=== PATIENT | female | born 1990 | race Hispanic/Latino ===

== ENCOUNTER → 2017-06-04 | Outpatient (CLI) | payer OTHER ==
[2017-06-04 19:34] LABS: ALT/SGPT 15 U/L (12-78); AST/SGOT 9 U/L (15-37); BILIRUBIN,TOTAL 0.3 MG/DL (0.2-1.0); CREATININE FOR GFR 0.55 MG/DL (0.55-1.02); GLOMERULAR FILTRATION RATE > 60.0 (>60); URIC ACID 3.6 MG/DL (2.6-6.0)
[2017-06-04 19:52] LABS: BASO % 0.1 % (0.0-1.0); EOS # 0.1 10^3/uL (0.0-0.50); EOS % 0.6 % (0.0-3.0); IMMATURE GRANULOCYTE % 0.4 % (0-0); LYMPH # 1.9 10^3/uL (1.5-6.5); MEAN CORPUSCULAR VOLUME 80.6 fl (80.0-96.0); MONO # 0.5 10^3/uL (0.0-0.8); NEUTROPHILS # 5.5 10^3/uL (1.8-7.7); NEUTROPHILS % 68.9 % (36.0-66.0); PLATELET COUNT, AUTOMATED 274 10^3/uL (150-450)
[2017-06-04 20:22] LABS: ADD MORPHOLOGY? NO
[2017-06-05 10:37] LABS: HBsAg Prenatal NEGATIVE (NEGATIVE)
== END ==
LOC: M SMT 15:10
PROVIDERS: ATTEND Advanced Practice Midwife
DX: Z34.81 Encounter for supervision of other normal pregnancy, first trimester (principal); Z86.32 Personal history of gestational diabetes; O13.5 Gestational [pregnancy-induced] hypertension without significant proteinuria, complicating the puerperium

== ENCOUNTER 2017-09-08 14:07 | Emergency (ER) | payer OTHER | END 2017-09-08 15:37 | disposition left against medical advice (07) | LOC: M ED 14:07 | DX: R51 Headache (principal); Z53.21 Procedure and treatment not carried out due to patient leaving prior to being seen by health care provider ==

== ENCOUNTER → 2017-09-19 | Outpatient (CLI) | payer OTHER | LOC: M SMT 13:47 | DX: Z34.82 Encounter for supervision of other normal pregnancy, second trimester (principal); Z36.89 Encounter for other specified antenatal screening; Z3A.20 20 weeks gestation of pregnancy | CPT/HCPCS: 76811 ==

== ENCOUNTER → 2017-10-03 | Outpatient (CLI) | payer OTHER | LOC: M RAD 18:20 | DX: G43.019 Migraine without aura, intractable, without status migrainosus (principal) | CPT/HCPCS: 70450 ==

== ENCOUNTER 2017-10-11 18:38 | Inpatient (IN) | payer OTHER ==
[~2017-10-11 18:38] MED LIST: METOCLOPRAMIDE INJ 10MG/2ML VIAL (J2765) IV; PERCOCET 5MG/325MG TAB PO
[2017-10-11 20:46] LABS: BASO % 0.1 % (0.0-1.0); EOS % 0.4 % (0.0-3.0); HEMATOCRIT 34.1 % (36.0-47.0); IMMATURE GRANULOCYTE % 0.3 % (0-0); LYMPH # 1.8 10^3/uL (1.5-6.5); LYMPH % 22.6 % (24.0-44.0); MEAN CORPUSCULAR HGB CONC 32.3 g/dl (32.0-36.5); MEAN CORPUSCULAR VOLUME 83.6 fl (80.0-96.0); MONO # 0.4 10^3/uL (0.0-0.8); NEUTROPHILS # 5.6 10^3/uL (1.8-7.7); NEUTROPHILS % 71.6 % (36.0-66.0); PLATELET COUNT, AUTOMATED 202 10^3/uL (150-450); RED BLOOD COUNT 4.08 10^6/uL (4.00-5.40); RED CELL DISTRIBUTION WIDTH 15.6 % (11.5-14.5); WHITE BLOOD COUNT 7.8 10^3/uL (4.0-10.0)
[2017-10-11] MEDS: diphenhydrAMINE INJ 50MG/ML VIAL (J1200) IV (20:52)
[2017-10-11 21:12] LABS: ALBUMIN 2.6 GM/DL (3.2-5.2); ALKALINE PHOSPHATASE 71 U/L (45-117); ALT/SGPT 13 U/L (12-78); ANION GAP 6 MEQ/L (8-16); AST/SGOT 8 U/L (7-37); BILIRUBIN,TOTAL 0.2 MG/DL (0.2-1.0); BLOOD UREA NITROGEN 15 MG/DL (7-18); CALCIUM LEVEL 8.5 MG/DL (8.5-10.1); CARBON DIOXIDE LEVEL 28 MEQ/L (21-32); CHLORIDE LEVEL 106 MEQ/L (98-107); CREATININE FOR GFR 0.47 MG/DL (0.55-1.30); GLOMERULAR FILTRATION RATE > 60.0 (>60); GLUCOSE, FASTING 114 MG/DL (70-100); POTASSIUM SERUM 3.7 MEQ/L (3.5-5.1); SODIUM LEVEL 140 MEQ/L (136-145); TOTAL PROTEIN 6.3 GM/DL (6.4-8.2)
[2017-10-11] MEDS: MAG SULF 1GM/100ML (MAG RUN) 1 GM in APPROPRIATE DILUENT 1 EA IV (22:29)
[2017-10-11] MEDS ORDERED: PERCOCET 5MG/325MG TAB PO (22:45)
[2017-10-11] MEDS: PERCOCET 5MG/325MG TAB PO (22:59)
[2017-10-12] MEDS: PROCHLORPERAZINE 10 MG/2 ML VIAL (J0780) IV (01:51)
[2017-10-12] MEDS: MORPHINE 4 MG/ML 1ML SYRINGE IV ×2 (02:27→17:25)
[2017-10-12] MEDS: PERCOCET 5MG/325MG TAB PO ×2 (10:00→15:14)
[2017-10-12] MEDS: VERAPAMIL 40 MG TAB PO (16:11)
[2017-10-12] MEDS: ESCITALOPRAM OXALATE 10 MG TAB (LEXAPRO) PO (18:32)
[2017-10-12] MEDS: ENOXAPARIN 40 MG/0.4 ML SYRINGE (J1650) SC (18:33)
[2017-10-12] MEDS ORDERED: MAGNESIUM OXIDE 400 MG TAB (MAG-OX) PO (21:00)
== END 2017-10-12 19:15 | disposition short-term general hospital (02) | DRG 103 ==
LOC: M OBS 18:38 → M PED 18:40
DX: G43.911 Migraine, unspecified, intractable, with status migrainosus (principal); I82.890 Acute embolism and thrombosis of other specified veins; Z3A.23 23 weeks gestation of pregnancy; Z33.1 Pregnant state, incidental; Z86.718 Personal history of other venous thrombosis and embolism; Z87.891 Personal history of nicotine dependence; Z79.899 Other long term (current) drug therapy

== ENCOUNTER 2017-10-18 11:53 | Outpatient (CLI) | payer OTHER | END 2017-10-18 12:32 | disposition home or self-care (01) | LOC: M LDO 11:53 | DX: O26.892 Other specified pregnancy related conditions, second trimester (principal); Z3A.24 24 weeks gestation of pregnancy; O99.352 Diseases of the nervous system complicating pregnancy, second trimester; G43.909 Migraine, unspecified, not intractable, without status migrainosus | CPT/HCPCS: 59025 ==

== ENCOUNTER → 2017-11-04 | Outpatient (CLI) | payer OTHER ==
[2017-11-04 18:53] LABS: BASO % 0.1 % (0.0-1.0); EOS % 0.4 % (0.0-3.0); HEMATOCRIT 35.9 % (36.0-47.0); HEMOGLOBIN 11.4 g/dl (12.0-16.0); IMMATURE GRANULOCYTE % 0.5 % (0-3.0); LYMPH # 1.5 10^3/uL (1.5-6.5); LYMPH % 18.3 % (24.0-44.0); MEAN CORPUSCULAR HEMOGLOBIN 26.3 pg (27.0-33.0); MEAN CORPUSCULAR HGB CONC 31.8 g/dl (32.0-36.5); MEAN CORPUSCULAR VOLUME 82.7 fl (80.0-96.0); MONO # 0.6 10^3/uL (0.0-0.8); MONO % 7.2 % (0.0-5.0); NEUTROPHILS # 6.1 10^3/uL (1.8-7.7); NEUTROPHILS % 73.5 % (36.0-66.0); PLATELET COUNT, AUTOMATED 235 10^3/uL (150-450); RED BLOOD COUNT 4.34 10^6/uL (4.00-5.40); RED CELL DISTRIBUTION WIDTH 16.3 % (11.5-14.5); WHITE BLOOD COUNT 8.3 10^3/uL (4.0-10.0)
== END ==
LOC: M SMT 13:20
DX: Z34.82 Encounter for supervision of other normal pregnancy, second trimester (principal)

== ENCOUNTER → 2017-11-11 | Outpatient (CLI) | payer OTHER | LOC: M SMT 11:32 | DX: Z34.83 Encounter for supervision of other normal pregnancy, third trimester (principal); Z3A.27 27 weeks gestation of pregnancy | CPT/HCPCS: 76816 ==

== ENCOUNTER 2017-11-14 02:11 | Outpatient (CLI) | payer OTHER ==
[2017-11-14] MEDS: PERCOCET 5MG/325MG TAB PO (04:17)
== END 2017-11-14 04:31 | disposition home or self-care (01) ==
LOC: M LDO 02:11
DX: O99.89 Other specified diseases and conditions complicating pregnancy, childbirth and the puerperium (principal); Z3A.28 28 weeks gestation of pregnancy; O99.352 Diseases of the nervous system complicating pregnancy, second trimester; G43.909 Migraine, unspecified, not intractable, without status migrainosus; Z86.718 Personal history of other venous thrombosis and embolism; Z86.69 Personal history of other diseases of the nervous system and sense organs; I69.30 Unspecified sequelae of cerebral infarction; M94.0 Chondrocostal junction syndrome [Tietze]

== ENCOUNTER 2017-11-21 08:12 | Inpatient (IN) | payer OTHER ==
[2017-11-21] MEDS: PRENATAL VITAMINS CHEWABLE TABLET PO (09:00)
[2017-11-21] MEDS ORDERED: OXYTOCIN 30 UNITS IN 0.9% NaCl 500ML IV BAG (J2590) As Ordered (09:55)
[2017-11-21] MEDS ORDERED: LR 1,000 ML IV (10:14)
[2017-11-21] MEDS: LACTATED RINGER'S 1000 ML IV (10:14)
[2017-11-21] MEDS: LR 1,000 ML IV ×2 (10:18→17:57)
[2017-11-21] MEDS: OXYTOCIN DRIP 30 UNITS in APPROPRIATE DILUENT 1 EA IV (10:18)
[2017-11-21] MEDS ORDERED: RHOGAM 300 MCG (1500 IU) INJ (J2790) IM (10:30)
[2017-11-21] MEDS ORDERED: DOCUSATE SODIUM 100 MG CAP PO (10:30)
[2017-11-21] MEDS ORDERED: PROMETHAZINE 25 MG TAB PO (10:30)
[2017-11-21] MEDS ORDERED: DIBUCAINE 1% OINTMENT 30GM TOP (10:30)
[2017-11-21 10:34] LABS: HEMATOCRIT 35.3 % (36.0-47.0); HEMOGLOBIN 11.6 g/dl (12.0-16.0); MEAN CORPUSCULAR HEMOGLOBIN 26.3 pg (27.0-33.0); MEAN CORPUSCULAR HGB CONC 32.9 g/dl (32.0-36.5); PLATELET COUNT, AUTOMATED 194 10^3/uL (150-450); RED BLOOD COUNT 4.41 10^6/uL (4.00-5.40); RED CELL DISTRIBUTION WIDTH 15.1 % (11.5-14.5); WHITE BLOOD COUNT 6.9 10^3/uL (4.0-10.0)
[2017-11-21] MEDS: ACETAMINOPHEN 500 MG TAB PO ×2 (10:34→16:37)
[2017-11-21] MEDS: IBUPROFEN 800 MG TAB PO (10:34)
[2017-11-21 10:36] LABS: CORD GAS ABE V -2.9; CORD GAS HCO3 V 19.9 MEQ/L; CORD GAS O2 SAT V 64.6 %; CORD GAS PCO2 V 28.7 mmHg; CORD GAS PH V 7.458 UNITS; CORD GAS PO2 V 22.1 mmHg; CORD GAS SBC V 21.4 MEQ/L; CORD GAS TCO2 V 20.7 MEQ/L
[2017-11-21] MEDS: PERCOCET 5MG/325MG TAB PO (13:52)
[2017-11-21] MEDS: MORPHINE 4 MG/ML 1ML VIAL (J2270) IV ×2 (16:53→21:48)
[2017-11-21] MEDS: ESCITALOPRAM OXALATE 10 MG TAB (LEXAPRO) PO (20:16)
[2017-11-21] MEDS: ENOXAPARIN 40 MG/0.4 ML SYRINGE (J1650) SC (20:17)
[2017-11-22] MEDS: MORPHINE 4 MG/ML 1ML VIAL (J2270) IV ×3 (00:21→08:01)
[2017-11-22] MEDS: ONDANSETRON 4MG/2ML VIAL (J2405) IV (04:49)
[2017-11-22] MEDS: PRENATAL VITAMINS CHEWABLE TABLET PO (07:46)
== END 2017-11-22 08:20 | disposition home or self-care (01) | DRG 774 ==
LOC: M LDO 08:12 → M LDI 09:46 → M OBS 10:31 → M LDI 10:43 → M OBS 12:02
PROC: 10E0XZZ Delivery of Products of Conception, External Approach (ICD-10-PCS; principal; 2017-11-21)
DX: O60.14X0 Preterm labor third trimester with preterm delivery third trimester, not applicable or unspecified (principal); O45.003 Premature separation of placenta with coagulation defect, unspecified, third trimester; O99.354 Diseases of the nervous system complicating childbirth; F32.9 Major depressive disorder, single episode, unspecified; F41.9 Anxiety disorder, unspecified; Z98.84 Bariatric surgery status; G43.709 Chronic migraine without aura, not intractable, without status migrainosus; Z79.899 Other long term (current) drug therapy; Z86.73 Personal history of transient ischemic attack (TIA), and cerebral infarction without residual deficits; O99.344 Other mental disorders complicating childbirth; Z3A.29 29 weeks gestation of pregnancy; Z37.0 Single live birth

== ENCOUNTER 2017-12-20 12:48 | Emergency (ER) | payer OTHER ==
[2017-12-20 15:16] LABS: BASO % 0.1 % (0.0-1.0); EOS # 0.1 10^3/uL (0.0-0.50); HEMATOCRIT 36.7 % (36.0-47.0); HEMOGLOBIN 11.4 g/dl (12.0-15.5); IMMATURE GRANULOCYTE % 0.3 % (0-3.0); LYMPH % 29.3 % (24.0-44.0); MEAN CORPUSCULAR HEMOGLOBIN 25.3 pg (27.0-33.0); MEAN CORPUSCULAR HGB CONC 31.1 g/dl (32.0-36.5); MEAN CORPUSCULAR VOLUME 81.6 fl (80.0-96.0); MONO # 0.4 10^3/uL (0.0-0.8); MONO % 5.6 % (0.0-5.0); NEUTROPHILS # 4.3 10^3/uL (1.8-7.7); NEUTROPHILS % 63.7 % (36.0-66.0); PLATELET COUNT, AUTOMATED 254 10^3/uL (150-450); RED CELL DISTRIBUTION WIDTH 14.6 % (11.5-14.5); WHITE BLOOD COUNT 6.8 10^3/uL (4.0-10.0)
[2017-12-20 15:20] LABS: KETONE, URINE AUTO RFX NEGATIVE (NEGATIVE); MUCUS, URINE RFX SMALL (NEGATIVE); NITRITE, URINE AUTO RFX NEGATIVE (NEGATIVE); RBC, URINE AUTO RFX 3 /HPF (0-3); SPECIFIC GRAVITY UR AUTO RFX 1.017 (1.002-1.035); SQUAM EPITHELIAL CELL UR AURFX 4 /HPF (0-6); WBC, URINE AUTO RFX 2 /HPF (0-3)
[2017-12-20 15:21] LABS: LEUKOCYTE ESTERASE UR AUTO RFX 1+ (NEGATIVE)
[2017-12-20] MEDS: ACETAMINOPHEN 325 MG TAB PO ×2 (15:30)
[2017-12-20] MEDS: MORPHINE 4 MG/ML 1ML VIAL (J2270) IV ×2 (15:30→16:25)
[2017-12-20] MEDS: MORPHINE 4 MG/ML 1ML VIAL/SYRINGE (J2270) IV ×2 (15:30→16:25)
[2017-12-20] MEDS: ONDANSETRON 4MG/2ML VIAL (J2405) IV ×2 (15:30)
[2017-12-20 15:50] LABS: ALBUMIN 3.4 GM/DL (3.2-5.2); ALBUMIN/GLOBULIN RATIO 0.94 (1.00-1.93); ALKALINE PHOSPHATASE 78 U/L (45-117); ALT/SGPT 14 U/L (12-78); ANION GAP 7 MEQ/L (8-16); AST/SGOT 10 U/L (7-37); BILIRUBIN,DIRECT < 0.1 MG/DL (0.0-0.2); BILIRUBIN,TOTAL 0.2 MG/DL (0.2-1.0); BLOOD UREA NITROGEN 15 MG/DL (7-18); C REACTIVE PROTEIN QUANTITATIV < 0.30 MG/DL (0.00-0.30); CALCIUM LEVEL 8.9 MG/DL (8.5-10.1); CARBON DIOXIDE LEVEL 27 MEQ/L (21-32); CHLORIDE LEVEL 106 MEQ/L (98-107); GLOMERULAR FILTRATION RATE > 60.0 (>60); GLUCOSE, FASTING 86 MG/DL (70-100); LIPASE 144 U/L (73-393); POTASSIUM SERUM 3.9 MEQ/L (3.5-5.1); SODIUM LEVEL 140 MEQ/L (136-145)
== END 2017-12-20 17:55 | disposition home or self-care (01) ==
LOC: M ED 12:48
DX: R10.9 Unspecified abdominal pain (principal); G89.29 Other chronic pain; Z76.5 Malingerer [conscious simulation]; Z86.73 Personal history of transient ischemic attack (TIA), and cerebral infarction without residual deficits; Z98.890 Other specified postprocedural states; Z98.84 Bariatric surgery status
CPT/HCPCS: J2270

== ENCOUNTER 2017-12-22 03:02 | Emergency (ER) | payer OTHER ==
[2017-12-22] MEDS ORDERED: GASTROGRAFIN SOLUTION 30ML (Q9963) As Ordered (04:38)
[2017-12-22 04:47] LABS: BASO % 0.1 % (0.0-1.0); EOS # 0.1 10^3/uL (0.0-0.50); EOS % 1.7 % (0.0-3.0); HEMATOCRIT 36.9 % (36.0-47.0); HEMOGLOBIN 11.4 g/dl (12.0-15.5); IMMATURE GRANULOCYTE % 0.1 % (0-3.0); LYMPH % 41.3 % (24.0-44.0); MEAN CORPUSCULAR HEMOGLOBIN 25.6 pg (27.0-33.0); MEAN CORPUSCULAR HGB CONC 30.9 g/dl (32.0-36.5); MEAN CORPUSCULAR VOLUME 82.7 fl (80.0-96.0); MONO # 0.5 10^3/uL (0.0-0.8); NEUTROPHILS # 3.6 10^3/uL (1.8-7.7); NEUTROPHILS % 49.8 % (36.0-66.0); PLATELET COUNT, AUTOMATED 271 10^3/uL (150-450); RED BLOOD COUNT 4.46 10^6/uL (4.00-5.40); RED CELL DISTRIBUTION WIDTH 14.5 % (11.5-14.5); WHITE BLOOD COUNT 7.1 10^3/uL (4.0-10.0)
[2017-12-22] MEDS: NS 1,000 ML IV (04:55)
[2017-12-22] MEDS: MORPHINE 4 MG/ML 1ML VIAL/SYRINGE (J2270) IV ×3 (04:55→06:52)
[2017-12-22 04:58] LABS: KETONE, URINE AUTO RFX NEGATIVE (NEGATIVE); MUCUS, URINE RFX SMALL (NEGATIVE); NITRITE, URINE AUTO RFX NEGATIVE (NEGATIVE); RBC, URINE AUTO RFX 2 /HPF (0-3); SPECIFIC GRAVITY UR AUTO RFX 1.049 (1.002-1.035); SQUAM EPITHELIAL CELL UR AURFX 2 /HPF (0-6); WBC, URINE AUTO RFX 1 /HPF (0-3)
[2017-12-22 05:03] LABS: LEUKOCYTE ESTERASE UR AUTO RFX TRACE (NEGATIVE)
[2017-12-22 05:09] LABS: ALBUMIN 3.4 GM/DL (3.2-5.2); ALKALINE PHOSPHATASE 105 U/L (45-117); ALT/SGPT 36 U/L (12-78); AMYLASE 45 U/L (25-115); ANION GAP 6 MEQ/L (8-16); AST/SGOT 20 U/L (7-37); BILIRUBIN,DIRECT < 0.1 MG/DL (0.0-0.2); BILIRUBIN,TOTAL 0.2 MG/DL (0.2-1.0); BLOOD UREA NITROGEN 19 MG/DL (7-18); CALCIUM LEVEL 9.1 MG/DL (8.5-10.1); CARBON DIOXIDE LEVEL 31 MEQ/L (21-32); CHLORIDE LEVEL 104 MEQ/L (98-107); CREATININE FOR GFR 0.69 MG/DL (0.55-1.30); GLOMERULAR FILTRATION RATE > 60.0 (>60); GLUCOSE, FASTING 89 MG/DL (70-100); LIPASE 120 U/L (73-393); POTASSIUM SERUM 4.2 MEQ/L (3.5-5.1); SODIUM LEVEL 141 MEQ/L (136-145); TOTAL PROTEIN 6.8 GM/DL (6.4-8.2)
[2017-12-22] MEDS: GASTROGRAFIN SOLUTION 30ML PO ×2 (05:23→06:53)
[2017-12-22] MEDS: fentaNYL 100 MCG/2 ML INJECTION (J3010) IV ×2 (05:31→07:47)
[2017-12-22] MEDS: ONDANSETRON 4MG/2ML VIAL (J2405) IV (05:32)
[2017-12-22] MEDS ORDERED: ISOVUE-370 76% 100ML VIAL (Q9967) As Ordered (06:02)
[2017-12-22] MEDS: PROMETHAZINE INJ 25 MG/ML VIAL (J2550) IV ×2 (06:24→07:47)
== END 2017-12-22 08:48 | disposition home or self-care (01) ==
LOC: M ED 03:02
DX: R10.9 Unspecified abdominal pain (principal); G89.29 Other chronic pain; F33.9 Major depressive disorder, recurrent, unspecified; F41.9 Anxiety disorder, unspecified; K21.9 Gastro-esophageal reflux disease without esophagitis; Z79.01 Long term (current) use of anticoagulants; Z79.2 Long term (current) use of antibiotics; Z79.899 Other long term (current) drug therapy; Z98.84 Bariatric surgery status; Z87.42 Personal history of other diseases of the female genital tract; Z87.19 Personal history of other diseases of the digestive system; Z86.69 Personal history of other diseases of the nervous system and sense organs; Z87.891 Personal history of nicotine dependence; Z98.890 Other specified postprocedural states
CPT/HCPCS: J2270

== ENCOUNTER 2017-12-25 02:49 | Emergency (ER) | payer OTHER ==
[2017-12-25 06:53] LABS: BASO % 0.3 % (0.0-1.0); EOS # 0.1 10^3/uL (0.0-0.50); EOS % 1.3 % (0.0-3.0); HEMATOCRIT 36.8 % (36.0-47.0); HEMOGLOBIN 11.5 g/dl (12.0-15.5); IMMATURE GRANULOCYTE % 0.3 % (0-3.0); LYMPH # 3.3 10^3/uL (1.5-6.5); LYMPH % 41.1 % (24.0-44.0); MEAN CORPUSCULAR HEMOGLOBIN 25.8 pg (27.0-33.0); MEAN CORPUSCULAR HGB CONC 31.3 g/dl (32.0-36.5); MEAN CORPUSCULAR VOLUME 82.7 fl (80.0-96.0); MONO # 0.6 10^3/uL (0.0-0.8); MONO % 7.4 % (0.0-5.0); NEUTROPHILS % 49.6 % (36.0-66.0); PLATELET COUNT, AUTOMATED 267 10^3/uL (150-450); RED BLOOD COUNT 4.45 10^6/uL (4.00-5.40); RED CELL DISTRIBUTION WIDTH 14.4 % (11.5-14.5)
[2017-12-25 07:03] LABS: KETONE, URINE AUTO RFX NEGATIVE (NEGATIVE); LEUKOCYTE ESTERASE UR AUTO RFX NEGATIVE (NEGATIVE); MUCUS, URINE RFX SMALL (NEGATIVE); NITRITE, URINE AUTO RFX NEGATIVE (NEGATIVE); RBC, URINE AUTO RFX 3 /HPF (0-3); SPECIFIC GRAVITY UR AUTO RFX 1.023 (1.002-1.035); SQUAM EPITHELIAL CELL UR AURFX 13 /HPF (0-6); WBC, URINE AUTO RFX 2 /HPF (0-3)
[2017-12-25 07:18] LABS: ALBUMIN 3.6 GM/DL (3.2-5.2); ALBUMIN/GLOBULIN RATIO 1.09 (1.00-1.93); ALKALINE PHOSPHATASE 95 U/L (45-117); ALT/SGPT 30 U/L (12-78); AMYLASE 41 U/L (25-115); ANION GAP 6 MEQ/L (8-16); AST/SGOT 18 U/L (7-37); BILIRUBIN,DIRECT < 0.1 MG/DL (0.0-0.2); BILIRUBIN,TOTAL 0.3 MG/DL (0.2-1.0); BLOOD UREA NITROGEN 14 MG/DL (7-18); CALCIUM LEVEL 9.1 MG/DL (8.5-10.1); CARBON DIOXIDE LEVEL 31 MEQ/L (21-32); CHLORIDE LEVEL 104 MEQ/L (98-107); CREATININE FOR GFR 0.66 MG/DL (0.55-1.30); GLOMERULAR FILTRATION RATE > 60.0 (>60); GLUCOSE, FASTING 96 MG/DL (70-100); LIPASE 104 U/L (73-393); POTASSIUM SERUM 3.8 MEQ/L (3.5-5.1); SODIUM LEVEL 141 MEQ/L (136-145); TOTAL PROTEIN 6.9 GM/DL (6.4-8.2)
[2017-12-25] MEDS: GI COCKTAIL 50ML BTL(HYOSCYAMINE/MAALOX/LIDOCAINE VISCOUS)(1:3:1) PO (07:45)
== END 2017-12-25 08:52 | disposition home or self-care (01) ==
LOC: M ED 02:49
DX: L76.34 Postprocedural seroma of skin and subcutaneous tissue following other procedure (principal); R10.13 Epigastric pain; Z79.899 Other long term (current) drug therapy
CPT/HCPCS: 71046

== ENCOUNTER 2018-01-02 12:45 | Emergency (ER) | payer OTHER ==
[2018-01-02] MEDS: ONDANSETRON 4 MG ORAL DISINTEGRATING TAB (Q0162 PER 1MG) PO ×2 (13:40→15:05)
[2018-01-02] MEDS: PERCOCET 5MG/325MG TAB PO (13:41)
[2018-01-02 13:53] LABS: BASO % 0.1 % (0.0-1.0); EOS # 0.1 10^3/uL (0.0-0.50); EOS % 0.9 % (0.0-3.0); HEMATOCRIT 36.8 % (36.0-47.0); HEMOGLOBIN 11.7 g/dl (12.0-15.5); IMMATURE GRANULOCYTE % 0.4 % (0-3.0); LYMPH # 1.6 10^3/uL (1.5-6.5); MEAN CORPUSCULAR HEMOGLOBIN 26.3 pg (27.0-33.0); MEAN CORPUSCULAR HGB CONC 31.8 g/dl (32.0-36.5); MEAN CORPUSCULAR VOLUME 82.7 fl (80.0-96.0); MONO # 0.5 10^3/uL (0.0-0.8); MONO % 6.8 % (0.0-5.0); NEUTROPHILS # 4.6 10^3/uL (1.8-7.7); NEUTROPHILS % 67.8 % (36.0-66.0); PLATELET COUNT, AUTOMATED 242 10^3/uL (150-450); RED BLOOD COUNT 4.45 10^6/uL (4.00-5.40); RED CELL DISTRIBUTION WIDTH 14.6 % (11.5-14.5); WHITE BLOOD COUNT 6.7 10^3/uL (4.0-10.0)
[2018-01-02 14:10] LABS: AMORPHOUS SEDIMENT SMALL (NEGATIVE); APPEARANCE, URINE CLOUDY (CLEAR); BACTERIA, URINE AUTO 2+ (NEGATIVE); BILIRUBIN, URINE AUTO NEGATIVE (NEGATIVE); BLOOD, URINE BLOOD 1+ (NEGATIVE); COLOR, URINE YELLOW (YELLOW); GLUCOSE, URINE (UA) AUTO NEGATIVE (NEGATIVE); KETONE, URINE AUTO NEGATIVE (NEGATIVE); LEUKOCYTE ESTERASE, URINE AUTO 3+ (NEGATIVE); MUCUS, URINE SMALL (NEGATIVE); NITRITE, URINE AUTO NEGATIVE (NEGATIVE); PROTEIN, URINE AUTO NEGATIVE (NEGATIVE); RBC, URINE AUTO 6 /HPF (0-3); SQUAMOUS EPITHELIAL CELL UR AU 7 /HPF (0-6); UROBILINOGEN, URINE AUTO 0.2 mg/dL (0.0-2.0); WBC, URINE AUTO 47 /HPF (0-3)
[2018-01-02 14:41] LABS: ALBUMIN 3.6 GM/DL (3.2-5.2); ALKALINE PHOSPHATASE 91 U/L (45-117); ALT/SGPT 15 U/L (12-78); ANION GAP 6 MEQ/L (8-16); AST/SGOT 11 U/L (7-37); BILIRUBIN,TOTAL 0.2 MG/DL (0.2-1.0); BLOOD UREA NITROGEN 13 MG/DL (7-18); CALCIUM LEVEL 9.1 MG/DL (8.5-10.1); CARBON DIOXIDE LEVEL 28 MEQ/L (21-32); CHLORIDE LEVEL 106 MEQ/L (98-107); CREATININE FOR GFR 0.71 MG/DL (0.55-1.30); GLOMERULAR FILTRATION RATE > 60.0 (>60); GLUCOSE, FASTING 93 MG/DL (70-100); LIPASE 132 U/L (73-393); POTASSIUM SERUM 3.9 MEQ/L (3.5-5.1); SODIUM LEVEL 140 MEQ/L (136-145); TOTAL PROTEIN 7.6 GM/DL (6.4-8.2)
== END 2018-01-02 15:12 | disposition home or self-care (01) ==
LOC: M ED 12:45
DX: N30.90 Cystitis, unspecified without hematuria (principal); Z87.19 Personal history of other diseases of the digestive system; Z79.899 Other long term (current) drug therapy
CPT/HCPCS: Q0162

== ENCOUNTER → 2018-03-31 | Outpatient (CLI) | payer OTHER | LOC: M WUC 16:20 | DX: M50.321 Other cervical disc degeneration at C4-C5 level (principal) | CPT/HCPCS: 72052 ==

== ENCOUNTER 2018-04-11 11:49 | Day surgery (SDC) | payer OTHER ==
[2018-04-11] MEDS: NS 1,000 ML IV (12:00)
[2018-04-11] MEDS ORDERED: PROPOFOL 200 MG/20 ML VIAL As Ordered ×2 (12:20)
[2018-04-11] MEDS ORDERED: LIDOCAINE 2% INJ 100 MG/5 ML SDV (FOR ANES.) As Ordered (12:20)
[2018-04-11] MEDS ORDERED: fentaNYL 100 MCG/2 ML INJECTION (J3010) As Ordered ×2 (12:28→13:55)
== END 2018-04-11 14:05 | disposition home or self-care (01) ==
LOC: M OPP 11:49
DX: K92.1 Melena (principal); K59.00 Constipation, unspecified; K63.89 Other specified diseases of intestine; K64.8 Other hemorrhoids; R10.13 Epigastric pain; R11.2 Nausea with vomiting, unspecified; K31.89 Other diseases of stomach and duodenum; F41.9 Anxiety disorder, unspecified; F32.9 Major depressive disorder, single episode, unspecified; Z98.84 Bariatric surgery status; K29.70 Gastritis, unspecified, without bleeding; K21.9 Gastro-esophageal reflux disease without esophagitis; Z86.73 Personal history of transient ischemic attack (TIA), and cerebral infarction without residual deficits; Z80.0 Family history of malignant neoplasm of digestive organs; Z83.2 Family history of diseases of the blood and blood-forming organs and certain disorders involving the immune mechanism; Z79.899 Other long term (current) drug therapy
CPT/HCPCS: 45380

== ENCOUNTER 2018-04-13 14:28 | Emergency (ER) | payer OTHER | END 2018-04-13 15:27 | disposition home or self-care (01) | LOC: M ED 14:28 | DX: K08.89 Other specified disorders of teeth and supporting structures (principal); R51 Headache; R68.84 Jaw pain; Z79.899 Other long term (current) drug therapy | CPT/HCPCS: 99282 ==

== ENCOUNTER 2018-04-19 14:57 | Emergency (ER) | payer OTHER | END 2018-04-19 17:05 | disposition home or self-care (01) | LOC: M ED 14:57 | DX: K08.89 Other specified disorders of teeth and supporting structures (principal); F41.9 Anxiety disorder, unspecified; F33.9 Major depressive disorder, recurrent, unspecified; N73.9 Female pelvic inflammatory disease, unspecified; Z86.73 Personal history of transient ischemic attack (TIA), and cerebral infarction without residual deficits; Z79.899 Other long term (current) drug therapy | CPT/HCPCS: 99282 ==

== ENCOUNTER 2018-04-29 20:29 | Emergency (ER) | payer OTHER ==
[2018-04-29 22:06] LABS: APPEARANCE, URINE CLEAR (CLEAR); BACTERIA, URINE AUTO NEGATIVE (NEGATIVE); BILIRUBIN, URINE AUTO NEGATIVE (NEGATIVE); BLOOD, URINE BLOOD NEGATIVE (NEGATIVE); COLOR, URINE YELLOW (YELLOW); GLUCOSE, URINE (UA) AUTO NEGATIVE (NEGATIVE); KETONE, URINE AUTO TRACE mg/dL (NEGATIVE); LEUKOCYTE ESTERASE, URINE AUTO TRACE (NEGATIVE); MUCUS, URINE SMALL (NEGATIVE); NITRITE, URINE AUTO NEGATIVE (NEGATIVE); PROTEIN, URINE AUTO NEGATIVE (NEGATIVE); RBC, URINE AUTO 1 /HPF (0-3); SPECIFIC GRAVITY URINE AUTO 1.023 (1.002-1.035); SQUAMOUS EPITHELIAL CELL UR AU 3 /HPF (0-6); WBC, URINE AUTO 2 /HPF (0-3)
[2018-04-29] MEDS: NS 1,000 ML IV (22:09)
[2018-04-29] MEDS: ONDANSETRON 4MG/2ML VIAL (J2405) IV (22:09)
[2018-04-29] MEDS: KETOROLAC 30 MG/ML VIAL (J1885) IV (22:09)
[2018-04-29] MEDS: GASTROGRAFIN SOLUTION 30ML PO ×2 (22:18→22:44)
[2018-04-29 22:22] LABS: BASO % 0.1 % (0.0-1.0); EOS % 0.3 % (0.0-3.0); HEMATOCRIT 33.9 % (36.0-47.0); HEMOGLOBIN 10.3 g/dl (12.0-15.5); IMMATURE GRANULOCYTE % 0.4 % (0-3.0); LYMPH # 1.7 10^3/uL (1.5-6.5); LYMPH % 23.8 % (24.0-44.0); MEAN CORPUSCULAR HEMOGLOBIN 22.9 pg (27.0-33.0); MEAN CORPUSCULAR HGB CONC 30.4 g/dl (32.0-36.5); MEAN CORPUSCULAR VOLUME 75.5 fl (80.0-96.0); MONO # 0.3 10^3/uL (0.0-0.8); MONO % 4.3 % (0.0-5.0); NEUTROPHILS # 5.1 10^3/uL (1.8-7.7); NEUTROPHILS % 71.1 % (36.0-66.0); PLATELET COUNT, AUTOMATED 203 10^3/uL (150-450); RED BLOOD COUNT 4.49 10^6/uL (4.00-5.40); RED CELL DISTRIBUTION WIDTH 17.5 % (11.5-14.5); WHITE BLOOD COUNT 7.2 10^3/uL (4.0-10.0)
[2018-04-29 22:44] LABS: ALBUMIN 3.5 GM/DL (3.2-5.2); ALBUMIN/GLOBULIN RATIO 0.92 (1.00-1.93); ALKALINE PHOSPHATASE 80 U/L (45-117); ALT/SGPT 15 U/L (12-78); AMYLASE 54 U/L (25-115); ANION GAP 5 MEQ/L (8-16); AST/SGOT 9 U/L (7-37); BILIRUBIN,TOTAL 0.3 MG/DL (0.2-1.0); BLOOD UREA NITROGEN 17 MG/DL (7-18); C REACTIVE PROTEIN QUANTITATIV < 0.30 MG/DL (0.00-0.30); CALCIUM LEVEL 8.5 MG/DL (8.5-10.1); CARBON DIOXIDE LEVEL 31 MEQ/L (21-32); CHLORIDE LEVEL 104 MEQ/L (98-107); CREATININE FOR GFR 0.62 MG/DL (0.55-1.30); GLOMERULAR FILTRATION RATE > 60.0 (>60); GLUCOSE, FASTING 87 MG/DL (70-100); LIPASE 124 U/L (73-393); POTASSIUM SERUM 3.8 MEQ/L (3.5-5.1); SODIUM LEVEL 140 MEQ/L (136-145); TOTAL PROTEIN 7.3 GM/DL (6.4-8.2)
[2018-04-29] MEDS: TRIMETHOBENZAMIDE HCL INJ 200 MG/2 ML VIAL (J3250) IM (22:44)
[2018-04-29] MEDS: MORPHINE 4 MG/ML 1ML VIAL/SYRINGE (J2270) IV ×2 (22:44→23:57)
[2018-04-29] MEDS ORDERED: ISOVUE-370 76% 100ML VIAL (Q9967) As Ordered (23:06)
[2018-04-29] MEDS: METOCLOPRAMIDE INJ 10MG/2ML VIAL (J2765) IV (23:57)
== END 2018-04-30 00:25 | disposition home or self-care (01) ==
LOC: M ED 04-30 00:25
DX: R10.12 Left upper quadrant pain (principal); R10.30 Lower abdominal pain, unspecified; G89.29 Other chronic pain; R11.2 Nausea with vomiting, unspecified; D57.1 Sickle-cell disease without crisis; F41.9 Anxiety disorder, unspecified; F32.9 Major depressive disorder, single episode, unspecified; Z86.73 Personal history of transient ischemic attack (TIA), and cerebral infarction without residual deficits; Z79.899 Other long term (current) drug therapy; Z98.84 Bariatric surgery status
CPT/HCPCS: J2270

== ENCOUNTER 2018-05-16 16:58 | Inpatient (IN) | payer OTHER ==
[2018-05-16 17:55] LABS: BASO % 0.1 % (0.0-1.0); EOS % 0.5 % (0.0-3.0); HEMATOCRIT 33.1 % (36.0-47.0); IMMATURE GRANULOCYTE % 0.3 % (0-3.0); LYMPH # 2.3 10^3/uL (1.5-6.5); LYMPH % 30.8 % (24.0-44.0); MEAN CORPUSCULAR HEMOGLOBIN 22.6 pg (27.0-33.0); MEAN CORPUSCULAR HGB CONC 30.2 g/dl (32.0-36.5); MEAN CORPUSCULAR VOLUME 74.7 fl (80.0-96.0); MONO # 0.6 10^3/uL (0.0-0.8); MONO % 8.2 % (0.0-5.0); NEUTROPHILS # 4.5 10^3/uL (1.8-7.7); NEUTROPHILS % 60.1 % (36.0-66.0); PLATELET COUNT, AUTOMATED 203 10^3/uL (150-450); RED BLOOD COUNT 4.43 10^6/uL (4.00-5.40); WHITE BLOOD COUNT 7.5 10^3/uL (4.0-10.0)
[2018-05-16 18:10] LABS: ALBUMIN 3.5 GM/DL (3.2-5.2); ALBUMIN/GLOBULIN RATIO 0.92 (1.00-1.93); ALKALINE PHOSPHATASE 83 U/L (45-117); ALT/SGPT 15 U/L (12-78); ANION GAP 9 MEQ/L (8-16); AST/SGOT 13 U/L (7-37); BILIRUBIN,DIRECT < 0.1 MG/DL (0.0-0.2); BILIRUBIN,TOTAL 0.2 MG/DL (0.2-1.0); BLOOD UREA NITROGEN 11 MG/DL (7-18); CALCIUM LEVEL 8.7 MG/DL (8.5-10.1); CARBON DIOXIDE LEVEL 25 MEQ/L (21-32); CHLORIDE LEVEL 105 MEQ/L (98-107); CPK CREATINE PHOSPHOKINASE 95 U/L (26-192); CREATININE FOR GFR 0.61 MG/DL (0.55-1.30); GLOMERULAR FILTRATION RATE > 60.0 (>60); GLUCOSE, FASTING 82 MG/DL (70-100); LIPASE 111 U/L (73-393); POTASSIUM SERUM 3.8 MEQ/L (3.5-5.1); SODIUM LEVEL 139 MEQ/L (136-145); TOTAL PROTEIN 7.3 GM/DL (6.4-8.2); TROPONIN I < 0.02 NG/ML (< 0.10)
[2018-05-16 18:14] LABS: INR 0.99; PROTHROMBIN TIME 13.2 SECONDS (12.1-14.4)
[2018-05-16 18:15] LABS: PARTIAL THROMBOPLASTIN TIME 27.3 SECONDS (25.4-37.6)
[2018-05-16 18:16] LABS: CK-MB VALUE MASS < 1.0 NG/ML (<3.6); FREE T4 0.94 NG/DL (0.76-1.46); MB/CK RELATIVE INDEX 1.05 (< OR =4)
[2018-05-16] MEDS: MORPHINE 4 MG/ML 1ML VIAL/SYRINGE (J2270) IV (18:45)
[2018-05-16] MEDS: ONDANSETRON 4MG/2ML VIAL (J2405) IV (18:45)
[2018-05-16 19:35] LABS: CONTROL LINE HCG INT CTR LINE PRESENT; HCG, SERUM QUALITATIVE NEGATIVE (NEGATIVE)
[2018-05-16] MEDS ORDERED: PROCHLORPERAZINE 5 MG TAB (S0183) PO (20:45)
[2018-05-16] MEDS: HYDROMORPHONE HCL 0.5 MG/ 0.5 ML SYRINGE (J1170 PER 1) IV (20:52)
[2018-05-16] MEDS: ENOXAPARIN 100MG/1ML SYRINGE (J1650) SC (20:52)
[2018-05-16] MEDS ORDERED: ONDANSETRON 4MG/2ML VIAL (J2405) IV (21:00)
[2018-05-16] MEDS ORDERED: BISACODYL 10 MG SUPP PR (21:00)
[2018-05-16] MEDS ORDERED: BISACODYL 5 MG TAB PO (21:00)
[2018-05-16] MEDS ORDERED: ACETAMINOPHEN TAB 650MG DOSE (2X325MG) PO (21:00)
[2018-05-16] MEDS: PROMETHAZINE INJ 25 MG/ML VIAL (J2550) IV (23:34)
[2018-05-16] MEDS: SENOKOT S TAB PO (23:34)
[2018-05-17] MEDS: HYDROMORPHONE HCL 0.5 MG/ 0.5 ML SYRINGE (J1170 PER 1) IV ×2 (00:02→03:55)
[2018-05-17] MEDS: ESCITALOPRAM OXALATE 10 MG TAB (LEXAPRO) PO (00:39)
[2018-05-17 06:43] LABS: HEMATOCRIT 32.8 % (36.0-47.0); HEMOGLOBIN 9.9 g/dl (12.0-15.5); MEAN CORPUSCULAR HEMOGLOBIN 22.8 pg (27.0-33.0); MEAN CORPUSCULAR HGB CONC 30.2 g/dl (32.0-36.5); MEAN CORPUSCULAR VOLUME 75.4 fl (80.0-96.0); PLATELET COUNT, AUTOMATED 193 10^3/uL (150-450); RED BLOOD COUNT 4.35 10^6/uL (4.00-5.40); RED CELL DISTRIBUTION WIDTH 18.1 % (11.5-14.5); WHITE BLOOD COUNT 6.1 10^3/uL (4.0-10.0)
[2018-05-17 06:56] LABS: ANION GAP 5 MEQ/L (8-16); BLOOD UREA NITROGEN 11 MG/DL (7-18); CALCIUM LEVEL 8.6 MG/DL (8.5-10.1); CARBON DIOXIDE LEVEL 29 MEQ/L (21-32); CHLORIDE LEVEL 107 MEQ/L (98-107); CREATININE FOR GFR 0.64 MG/DL (0.55-1.30); GLOMERULAR FILTRATION RATE > 60.0 (>60); GLUCOSE, FASTING 88 MG/DL (70-100); POTASSIUM SERUM 4.4 MEQ/L (3.5-5.1); SODIUM LEVEL 141 MEQ/L (136-145)
[2018-05-17] MEDS ORDERED: PERCOCET 5MG/325MG TAB PO ×2 (07:15)
[2018-05-17] MEDS: APIXABAN 5 MG TAB (ELIQUIS) PO (08:18)
[2018-05-17] MEDS ORDERED: FERROUS SULFATE 325MG TAB PO (09:00)
[2018-05-17] MEDS ORDERED: ESCITALOPRAM OXALATE 10 MG TAB (LEXAPRO) PO (21:00)
== END 2018-05-17 08:45 | disposition home or self-care (01) | DRG 176 ==
LOC: M ED 16:58 → M ED INP 21:03 → M PED 22:55
DX: I26.99 Other pulmonary embolism without acute cor pulmonale (principal); G43.909 Migraine, unspecified, not intractable, without status migrainosus; D64.9 Anemia, unspecified; F53 Mental and behavioral disorders associated with the puerperium, not elsewhere classified; R11.0 Nausea; Z79.899 Other long term (current) drug therapy; Z98.84 Bariatric surgery status; Z90.49 Acquired absence of other specified parts of digestive tract; Z87.891 Personal history of nicotine dependence; Z88.8 Allergy status to other drugs, medicaments and biological substances; Z86.73 Personal history of transient ischemic attack (TIA), and cerebral infarction without residual deficits

== ENCOUNTER → 2018-05-16 | Outpatient (CLI) | payer OTHER ==
[~2018-05-16] MED LIST changes: +ISOVUE-370 76% 100ML VIAL (Q9967) As Ordered; -METOCLOPRAMIDE INJ 10MG/2ML VIAL (J2765) IV; -PERCOCET 5MG/325MG TAB PO
== END ==
LOC: M RAD 16:16
DX: R07.89 Other chest pain (principal)
CPT/HCPCS: Q9967

== ENCOUNTER 2018-05-18 17:21 | Emergency (ER) | payer OTHER ==
[2018-05-18] MEDS: NS 1,000 ML IV (18:21)
[2018-05-18] MEDS: MORPHINE 2 MG/ML 1ML SYRINGE (J2270) IV ×2 (18:22→19:18)
[2018-05-18] MEDS: PROMETHAZINE INJ 25 MG/ML VIAL (J2550) IV (18:23)
[2018-05-18] MEDS ORDERED: ISOVUE-370 76% 100ML VIAL (Q9967) As Ordered (19:04)
[2018-05-18] MEDS: KETOROLAC 30 MG/ML VIAL (J1885) IV (19:54)
[2018-05-18] MEDS: OXYCODONE/APAP 5MG/325MG(BULK FOR ED) 1 TABLET PO (20:36)
[2018-05-18] MEDS: APIXABAN 5 MG TAB (ELIQUIS) PO (20:36)
== END 2018-05-18 20:48 | disposition home or self-care (01) ==
LOC: M ED 17:21
DX: R07.9 Chest pain, unspecified (principal); I49.9 Cardiac arrhythmia, unspecified; G43.909 Migraine, unspecified, not intractable, without status migrainosus; Z86.711 Personal history of pulmonary embolism; Z98.84 Bariatric surgery status; Z86.73 Personal history of transient ischemic attack (TIA), and cerebral infarction without residual deficits; Z88.8 Allergy status to other drugs, medicaments and biological substances; Z79.899 Other long term (current) drug therapy; Z79.01 Long term (current) use of anticoagulants; Z87.891 Personal history of nicotine dependence
CPT/HCPCS: Q9967

== ENCOUNTER 2018-05-19 13:35 | Emergency (ER) | payer OTHER | END 2018-05-19 16:08 | disposition home or self-care (01) | LOC: M ED 13:35 | DX: R07.9 Chest pain, unspecified (principal); I26.99 Other pulmonary embolism without acute cor pulmonale; K58.9 Irritable bowel syndrome, unspecified; Z98.84 Bariatric surgery status; Z86.73 Personal history of transient ischemic attack (TIA), and cerebral infarction without residual deficits; Z88.8 Allergy status to other drugs, medicaments and biological substances; Z79.899 Other long term (current) drug therapy; Z79.01 Long term (current) use of anticoagulants | CPT/HCPCS: 99282 ==

== ENCOUNTER 2018-05-25 20:01 | Emergency (ER) | payer OTHER ==
[2018-05-25 20:38] LABS: BASO % 0.1 % (0.0-1.0); EOS % 0.4 % (0.0-3.0); HEMATOCRIT 33.8 % (36.0-47.0); HEMOGLOBIN 10.2 g/dl (12.0-15.5); IMMATURE GRANULOCYTE % 0.3 % (0-3.0); LYMPH # 1.5 10^3/uL (1.5-6.5); LYMPH % 22.9 % (24.0-44.0); MEAN CORPUSCULAR HEMOGLOBIN 22.5 pg (27.0-33.0); MEAN CORPUSCULAR HGB CONC 30.2 g/dl (32.0-36.5); MEAN CORPUSCULAR VOLUME 74.6 fl (80.0-96.0); MONO # 0.6 10^3/uL (0.0-0.8); MONO % 8.4 % (0.0-5.0); NEUTROPHILS # 4.5 10^3/uL (1.8-7.7); NEUTROPHILS % 67.9 % (36.0-66.0); PLATELET COUNT, AUTOMATED 227 10^3/uL (150-450); RED BLOOD COUNT 4.53 10^6/uL (4.00-5.40); RED CELL DISTRIBUTION WIDTH 18.4 % (11.5-14.5); WHITE BLOOD COUNT 6.7 10^3/uL (4.0-10.0)
[2018-05-25 20:47] LABS: INR 0.94; PARTIAL THROMBOPLASTIN TIME 25.3 SECONDS (25.4-37.6); PROTHROMBIN TIME 12.7 SECONDS (12.1-14.4)
[2018-05-25 20:54] LABS: CONTROL LINE HCG INT CTR LINE PRESENT; HCG, SERUM QUALITATIVE NEGATIVE (NEGATIVE)
[2018-05-25] MEDS: NS 1,000 ML IV (21:00)
[2018-05-25 21:13] LABS: ALBUMIN 3.5 GM/DL (3.2-5.2); ALBUMIN/GLOBULIN RATIO 0.92 (1.00-1.93); ALKALINE PHOSPHATASE 73 U/L (45-117); ALT/SGPT 17 U/L (12-78); ANION GAP 9 MEQ/L (8-16); AST/SGOT 14 U/L (7-37); BILIRUBIN,DIRECT < 0.1 MG/DL (0.0-0.2); BILIRUBIN,TOTAL 0.2 MG/DL (0.2-1.0); BLOOD UREA NITROGEN 11 MG/DL (7-18); CALCIUM LEVEL 9.1 MG/DL (8.5-10.1); CARBON DIOXIDE LEVEL 28 MEQ/L (21-32); CHLORIDE LEVEL 105 MEQ/L (98-107); CK-MB VALUE MASS < 1.0 NG/ML (<3.6); CPK CREATINE PHOSPHOKINASE 99 U/L (26-192); CREATININE FOR GFR 0.62 MG/DL (0.55-1.30); GLOMERULAR FILTRATION RATE > 60.0 (>60); GLUCOSE, FASTING 74 MG/DL (70-100); LIPASE 153 U/L (73-393); MB/CK RELATIVE INDEX 1.01 (< OR =4); POTASSIUM SERUM 3.9 MEQ/L (3.5-5.1); SODIUM LEVEL 142 MEQ/L (136-145); TOTAL PROTEIN 7.3 GM/DL (6.4-8.2); TROPONIN I < 0.02 NG/ML (< 0.10)
[2018-05-25] MEDS: ACETAMINOPHEN 325 MG TAB PO (21:15)
[2018-05-25] MEDS: ONDANSETRON 4MG/2ML VIAL (J2405) IV (21:15)
[2018-05-25] MEDS ORDERED: ISOVUE-370 76% 100ML VIAL (Q9967) As Ordered (21:24)
[2018-05-25] MEDS: MORPHINE 2 MG/ML 1ML SYRINGE (J2270) IV (22:25)
[2018-05-25 22:58] LABS: APPEARANCE, URINE CLEAR (CLEAR); BACTERIA, URINE AUTO NEGATIVE (NEGATIVE); BILIRUBIN, URINE AUTO NEGATIVE (NEGATIVE); BLOOD, URINE BLOOD 3+ (NEGATIVE); COLOR, URINE YELLOW (YELLOW); GLUCOSE, URINE (UA) AUTO NEGATIVE (NEGATIVE); KETONE, URINE AUTO NEGATIVE (NEGATIVE); LEUKOCYTE ESTERASE, URINE AUTO NEGATIVE (NEGATIVE); NITRITE, URINE AUTO NEGATIVE (NEGATIVE); PROTEIN, URINE AUTO NEGATIVE (NEGATIVE); RBC, URINE AUTO 57 /HPF (0-3); SPECIFIC GRAVITY URINE AUTO 1.047 (1.002-1.035); SQUAMOUS EPITHELIAL CELL UR AU 2 /HPF (0-6); UROBILINOGEN, URINE AUTO 0.2 mg/dL (0.0-2.0); WBC, URINE AUTO 1 /HPF (0-3)
[2018-05-25] MEDS: KETOROLAC 30 MG/ML VIAL (J1885) IV (23:34)
[2018-05-25] MEDS: MORPHINE 4 MG/ML 1ML VIAL/SYRINGE (J2270) IV (23:45)
== END 2018-05-25 23:57 | disposition home or self-care (01) ==
LOC: M ED 20:01
DX: R11.10 Vomiting, unspecified (principal); Z86.711 Personal history of pulmonary embolism; K21.9 Gastro-esophageal reflux disease without esophagitis; F32.9 Major depressive disorder, single episode, unspecified; G43.909 Migraine, unspecified, not intractable, without status migrainosus; K58.9 Irritable bowel syndrome, unspecified; D64.9 Anemia, unspecified; Z87.59 Personal history of other complications of pregnancy, childbirth and the puerperium; Z98.84 Bariatric surgery status; Z87.891 Personal history of nicotine dependence; Z79.899 Other long term (current) drug therapy; Z88.8 Allergy status to other drugs, medicaments and biological substances
CPT/HCPCS: J2270

== ENCOUNTER 2018-06-11 20:13 | Emergency (ER) | payer OTHER ==
[2018-06-11 21:43] LABS: BASO % 0.1 % (0.0-1.0); EOS # 0.1 10^3/uL (0.0-0.50); EOS % 0.7 % (0.0-3.0); HEMATOCRIT 34.2 % (36.0-47.0); HEMOGLOBIN 10.2 g/dl (12.0-15.5); IMMATURE GRANULOCYTE % 0.2 % (0-3.0); LYMPH # 2.2 10^3/uL (1.5-6.5); LYMPH % 24.4 % (24.0-44.0); MEAN CORPUSCULAR HGB CONC 29.8 g/dl (32.0-36.5); MEAN CORPUSCULAR VOLUME 73.9 fl (80.0-96.0); MONO # 0.7 10^3/uL (0.0-0.8); MONO % 7.2 % (0.0-5.0); NEUTROPHILS # 6.1 10^3/uL (1.8-7.7); NEUTROPHILS % 67.4 % (36.0-66.0); PLATELET COUNT, AUTOMATED 193 10^3/uL (150-450); RED BLOOD COUNT 4.63 10^6/uL (4.00-5.40); RED CELL DISTRIBUTION WIDTH 17.3 % (11.5-14.5)
[2018-06-11 21:48] LABS: KETONE, URINE AUTO RFX TRACE mg/dL (NEGATIVE); MUCUS, URINE RFX SMALL (NEGATIVE); NITRITE, URINE AUTO RFX NEGATIVE (NEGATIVE); RBC, URINE AUTO RFX 4 /HPF (0-3); SPECIFIC GRAVITY UR AUTO RFX 1.034 (1.002-1.035); SQUAM EPITHELIAL CELL UR AURFX 14 /HPF (0-6)
[2018-06-11 21:59] LABS: LEUKOCYTE ESTERASE UR AUTO RFX 3+ (NEGATIVE); WBC, URINE AUTO RFX 34 /HPF (0-3)
[2018-06-11 22:03] LABS: ALBUMIN 3.9 GM/DL (3.2-5.2); ALBUMIN/GLOBULIN RATIO 1.15 (1.00-1.93); ALKALINE PHOSPHATASE 87 U/L (45-117); ALT/SGPT 15 U/L (12-78); ANION GAP 7 MEQ/L (8-16); AST/SGOT 11 U/L (7-37); BILIRUBIN,TOTAL 0.3 MG/DL (0.2-1.0); BLOOD UREA NITROGEN 19 MG/DL (7-18); C REACTIVE PROTEIN QUANTITATIV < 0.30 MG/DL (0.00-0.30); CALCIUM LEVEL 9.4 MG/DL (8.5-10.1); CARBON DIOXIDE LEVEL 29 MEQ/L (21-32); CHLORIDE LEVEL 103 MEQ/L (98-107); CREATININE FOR GFR 0.58 MG/DL (0.55-1.30); GLOMERULAR FILTRATION RATE > 60.0 (>60); GLUCOSE, FASTING 82 MG/DL (70-100); POTASSIUM SERUM 3.8 MEQ/L (3.5-5.1); SODIUM LEVEL 139 MEQ/L (136-145); TOTAL PROTEIN 7.3 GM/DL (6.4-8.2)
[2018-06-11] MEDS: NS 500 ML IV (22:10)
[2018-06-11] MEDS: KETOROLAC 30 MG/ML VIAL (J1885) IV (22:11)
[2018-06-11] MEDS: diphenhydrAMINE INJ 50MG/ML VIAL (J1200) IV (22:11)
[2018-06-11] MEDS: TRIMETHOBENZAMIDE HCL INJ 200 MG/2 ML VIAL (J3250) IM (22:14)
[2018-06-11] MEDS: PHENAZOPYRIDINE 100 MG TAB PO (22:54)
[2018-06-11] MEDS: CIPROFLOXACIN 500 MG TAB PO (22:54)
[2018-06-11] MEDS: ACETAMINOPH W/CODEINE #3 TAB UD PO (22:58)
== END 2018-06-11 23:03 | disposition home or self-care (01) ==
LOC: M ED 20:13
DX: N39.0 Urinary tract infection, site not specified (principal); R31.9 Hematuria, unspecified; R51 Headache; K58.9 Irritable bowel syndrome, unspecified; D57.3 Sickle-cell trait; F41.9 Anxiety disorder, unspecified; F33.9 Major depressive disorder, recurrent, unspecified
CPT/HCPCS: J1200

== ENCOUNTER 2018-06-15 22:15 | Emergency (ER) | payer OTHER | END 2018-06-16 00:45 | disposition left against medical advice (07) | LOC: M ED 06-16 00:45 | DX: H53.8 Other visual disturbances (principal); Z53.21 Procedure and treatment not carried out due to patient leaving prior to being seen by health care provider ==

== ENCOUNTER 2018-06-16 09:06 | Emergency (ER) | payer OTHER | END 2018-06-16 10:07 | disposition home or self-care (01) | LOC: M ED 09:06 | DX: Z76.0 Encounter for issue of repeat prescription (principal); I26.99 Other pulmonary embolism without acute cor pulmonale; R51 Headache; R11.0 Nausea; Z86.73 Personal history of transient ischemic attack (TIA), and cerebral infarction without residual deficits; Z87.59 Personal history of other complications of pregnancy, childbirth and the puerperium; K58.9 Irritable bowel syndrome, unspecified; N73.9 Female pelvic inflammatory disease, unspecified; Z82.49 Family history of ischemic heart disease and other diseases of the circulatory system; Z98.84 Bariatric surgery status; Z79.899 Other long term (current) drug therapy; Z79.01 Long term (current) use of anticoagulants; Z79.2 Long term (current) use of antibiotics | CPT/HCPCS: 99282 ==

== ENCOUNTER 2018-06-19 00:21 | Emergency (ER) | payer OTHER ==
[2018-06-19] MEDS: KETOROLAC 30 MG/ML VIAL (J1885) IV (02:30)
[2018-06-19] MEDS: dexameTHASONE 20 MG/5 ML VIAL (J1100) IV (02:30)
[2018-06-19] MEDS: diphenhydrAMINE INJ 50MG/ML VIAL (J1200) IV (02:30)
== END 2018-06-19 03:54 | disposition home or self-care (01) ==
LOC: M ED 00:21
DX: G43.909 Migraine, unspecified, not intractable, without status migrainosus (principal); Z98.84 Bariatric surgery status
CPT/HCPCS: J1200

== ENCOUNTER 2018-06-25 14:24 | Emergency (ER) | payer OTHER ==
[2018-06-25 15:48] LABS: BASO % 0.2 % (0.0-1.0); EOS # 0.1 10^3/uL (0.0-0.50); EOS % 0.8 % (0.0-3.0); HEMATOCRIT 33.7 % (36.0-47.0); IMMATURE GRANULOCYTE % 0.3 % (0-3.0); LYMPH # 1.4 10^3/uL (1.5-6.5); MEAN CORPUSCULAR HEMOGLOBIN 22.1 pg (27.0-33.0); MEAN CORPUSCULAR HGB CONC 29.7 g/dl (32.0-36.5); MEAN CORPUSCULAR VOLUME 74.6 fl (80.0-96.0); MONO # 0.4 10^3/uL (0.0-0.8); MONO % 6.8 % (0.0-5.0); NEUTROPHILS # 4.1 10^3/uL (1.8-7.7); NEUTROPHILS % 68.9 % (36.0-66.0); PLATELET COUNT, AUTOMATED 178 10^3/uL (150-450); RED BLOOD COUNT 4.52 10^6/uL (4.00-5.40); RED CELL DISTRIBUTION WIDTH 17.4 % (11.5-14.5)
[2018-06-25 15:56] LABS: INR 1.08; PROTHROMBIN TIME 14.1 SECONDS (12.1-14.4)
[2018-06-25 15:57] LABS: PARTIAL THROMBOPLASTIN TIME 32.4 SECONDS (25.4-37.6)
[2018-06-25 16:09] LABS: ANION GAP 6 MEQ/L (8-16); BLOOD UREA NITROGEN 13 MG/DL (7-18); CALCIUM LEVEL 8.6 MG/DL (8.5-10.1); CARBON DIOXIDE LEVEL 29 MEQ/L (21-32); CHLORIDE LEVEL 106 MEQ/L (98-107); CREATININE FOR GFR 0.56 MG/DL (0.55-1.30); GLOMERULAR FILTRATION RATE > 60.0 (>60); GLUCOSE, FASTING 94 MG/DL (70-100); HCG, SERUM QUANTITATIVE < 1.0 MIU/ML; POTASSIUM SERUM 4.2 MEQ/L (3.5-5.1); SODIUM LEVEL 141 MEQ/L (136-145)
== END 2018-06-25 16:25 | disposition home or self-care (01) ==
LOC: M ED 14:24
DX: N93.9 Abnormal uterine and vaginal bleeding, unspecified (principal)
CPT/HCPCS: 84702

== ENCOUNTER 2018-06-28 12:41 | Emergency (ER) | payer OTHER ==
[2018-06-28] MEDS: RIVAROXABAN 15 MG TAB (XARELTO) PO (14:16)
[2018-06-28] MEDS: OXYCODONE/APAP 5MG/325MG(BULK FOR ED) 1 TABLET PO (14:17)
== END 2018-06-28 14:17 | disposition home or self-care (01) ==
LOC: M ED 12:41
DX: Z76.0 Encounter for issue of repeat prescription (principal); F41.9 Anxiety disorder, unspecified; F32.9 Major depressive disorder, single episode, unspecified; G43.909 Migraine, unspecified, not intractable, without status migrainosus; Z86.711 Personal history of pulmonary embolism; Z79.02 Long term (current) use of antithrombotics/antiplatelets; Z79.899 Other long term (current) drug therapy; Z88.8 Allergy status to other drugs, medicaments and biological substances
CPT/HCPCS: 99282

== ENCOUNTER 2018-06-29 06:12 | Emergency (ER) | payer OTHER ==
[2018-06-29] MEDS: RIVAROXABAN 15 MG TAB (XARELTO) PO (06:43)
[2018-06-29] MEDS: OXYCODONE/APAP 5MG/325MG(BULK FOR ED) 1 TABLET PO (06:43)
== END 2018-06-29 06:47 | disposition home or self-care (01) ==
LOC: M ED 06:12
DX: Z76.0 Encounter for issue of repeat prescription (principal); F33.9 Major depressive disorder, recurrent, unspecified; F41.9 Anxiety disorder, unspecified; G43.909 Migraine, unspecified, not intractable, without status migrainosus; Z86.711 Personal history of pulmonary embolism; Z79.899 Other long term (current) drug therapy; Z79.01 Long term (current) use of anticoagulants; Z88.8 Allergy status to other drugs, medicaments and biological substances
CPT/HCPCS: 99282

== ENCOUNTER 2018-06-29 22:21 | Emergency (ER) | payer OTHER ==
[2018-06-29] MEDS: OXYCODONE/APAP 5MG/325MG(BULK FOR ED) 1 TABLET PO (23:01)
[2018-06-29] MEDS: RIVAROXABAN 15 MG TAB (XARELTO) PO (23:02)
== END 2018-06-29 23:07 | disposition home or self-care (01) ==
LOC: M ED 22:21
DX: Z76.0 Encounter for issue of repeat prescription (principal); Z79.899 Other long term (current) drug therapy; Z88.0 Allergy status to penicillin
CPT/HCPCS: 99281

== ENCOUNTER 2018-07-03 19:49 | Emergency (ER) | payer OTHER | END 2018-07-03 21:09 | disposition home or self-care (01) | LOC: M ED 19:49 | DX: Z76.0 Encounter for issue of repeat prescription (principal); J45.909 Unspecified asthma, uncomplicated; K21.9 Gastro-esophageal reflux disease without esophagitis; K58.9 Irritable bowel syndrome, unspecified; Z79.899 Other long term (current) drug therapy; Z88.8 Allergy status to other drugs, medicaments and biological substances | CPT/HCPCS: 99282 ==

== ENCOUNTER 2018-07-05 22:55 | Emergency (ER) | payer OTHER ==
[2018-07-05] MEDS: LIDOCAINE VISCOUS 2% SOLN 15ML UDC SSP (23:30)
== END 2018-07-05 23:36 | disposition home or self-care (01) ==
LOC: M ED 22:55
DX: K08.89 Other specified disorders of teeth and supporting structures (principal); S02.5XXA Fracture of tooth (traumatic), initial encounter for closed fracture; X58.XXXA Exposure to other specified factors, initial encounter; Y92.89 Other specified places as the place of occurrence of the external cause; Z76.5 Malingerer [conscious simulation]; N73.9 Female pelvic inflammatory disease, unspecified; Z98.84 Bariatric surgery status
CPT/HCPCS: 99282

== ENCOUNTER 2018-07-11 02:07 | Emergency (ER) | payer OTHER ==
[2018-07-11 04:27] LABS: KETONE, URINE AUTO RFX NEGATIVE (NEGATIVE); LEUKOCYTE ESTERASE UR AUTO RFX NEGATIVE (NEGATIVE); MUCUS, URINE RFX SMALL (NEGATIVE); NITRITE, URINE AUTO RFX NEGATIVE (NEGATIVE); RBC, URINE AUTO RFX 4 /HPF (0-3); SPECIFIC GRAVITY UR AUTO RFX 1.029 (1.002-1.035); SQUAM EPITHELIAL CELL UR AURFX 4 /HPF (0-6); WBC, URINE AUTO RFX 2 /HPF (0-3)
[2018-07-11] MEDS ORDERED: ISOVUE-370 76% 100ML VIAL (Q9967) As Ordered (19:24)
== END 2018-07-11 11:12 | disposition left against medical advice (07) ==
LOC: M ED 11:12
DX: R10.9 Unspecified abdominal pain (principal); R11.0 Nausea; Z53.21 Procedure and treatment not carried out due to patient leaving prior to being seen by health care provider

== ENCOUNTER 2018-07-11 18:08 | Emergency (ER) | payer OTHER ==
[2018-07-11] MEDS: ONDANSETRON 4MG/2ML VIAL (J2405) IV (18:39)
[2018-07-11] MEDS: MORPHINE 2 MG/ML 1ML SYRINGE (J2270) IV (18:39)
[2018-07-11] MEDS: NS 1,000 ML IV (18:40)
[2018-07-11 18:55] LABS: BASO % 0.2 % (0.0-1.0); EOS % 0.5 % (0.0-3.0); HEMOGLOBIN 9.5 g/dl (12.0-15.5); IMMATURE GRANULOCYTE % 0.2 % (0-3.0); LYMPH # 1.6 10^3/uL (1.5-6.5); LYMPH % 28.9 % (24.0-44.0); MEAN CORPUSCULAR HEMOGLOBIN 21.5 pg (27.0-33.0); MEAN CORPUSCULAR HGB CONC 29.7 g/dl (32.0-36.5); MEAN CORPUSCULAR VOLUME 72.6 fl (80.0-96.0); MONO # 0.5 10^3/uL (0.0-0.8); MONO % 9.1 % (0.0-5.0); NEUTROPHILS # 3.4 10^3/uL (1.8-7.7); NEUTROPHILS % 61.1 % (36.0-66.0); PLATELET COUNT, AUTOMATED 173 10^3/uL (150-450); RED BLOOD COUNT 4.41 10^6/uL (4.00-5.40); RED CELL DISTRIBUTION WIDTH 17.2 % (11.5-14.5); WHITE BLOOD COUNT 5.5 10^3/uL (4.0-10.0)
[2018-07-11 19:10] LABS: KETONE, URINE AUTO RFX NEGATIVE (NEGATIVE); NITRITE, URINE AUTO RFX NEGATIVE (NEGATIVE); RBC, URINE AUTO RFX 4 /HPF (0-3); SPECIFIC GRAVITY UR AUTO RFX 1.018 (1.002-1.035); SQUAM EPITHELIAL CELL UR AURFX 4 /HPF (0-6); WBC, URINE AUTO RFX 3 /HPF (0-3)
[2018-07-11 19:15] LABS: ALBUMIN 3.6 GM/DL (3.2-5.2); ALBUMIN/GLOBULIN RATIO 1.03 (1.00-1.93); ALKALINE PHOSPHATASE 82 U/L (45-117); ALT/SGPT 15 U/L (12-78); ANION GAP 7 MEQ/L (8-16); AST/SGOT 10 U/L (7-37); BILIRUBIN,DIRECT < 0.1 MG/DL (0.0-0.2); BILIRUBIN,TOTAL 0.2 MG/DL (0.2-1.0); BLOOD UREA NITROGEN 10 MG/DL (7-18); CALCIUM LEVEL 8.9 MG/DL (8.5-10.1); CARBON DIOXIDE LEVEL 29 MEQ/L (21-32); CHLORIDE LEVEL 104 MEQ/L (98-107); GLOMERULAR FILTRATION RATE > 60.0 (>60); GLUCOSE, FASTING 87 MG/DL (70-100); LIPASE 165 U/L (73-393); POTASSIUM SERUM 4.3 MEQ/L (3.5-5.1); SODIUM LEVEL 140 MEQ/L (136-145); TOTAL PROTEIN 7.1 GM/DL (6.4-8.2)
[2018-07-11] MEDS ORDERED: fentaNYL 100 MCG/2 ML INJECTION (J3010) IV (19:30)
[2018-07-11 19:31] LABS: LEUKOCYTE ESTERASE UR AUTO RFX 3+ (NEGATIVE)
[2018-07-11] MEDS: PROMETHAZINE INJ 25 MG/ML VIAL (J2550) IV (19:48)
[2018-07-11] MEDS: PERCOCET 5MG/325MG TAB PO (20:39)
[2018-07-11] MEDS: BACTRIM 160MG/800MG DS TAB PO (20:39)
[2018-07-11] MEDS: diphenhydrAMINE INJ 50MG/ML VIAL (J1200) IV (20:51)
== END 2018-07-11 21:01 | disposition home or self-care (01) ==
LOC: M ED 18:08
DX: N39.0 Urinary tract infection, site not specified (principal); Z86.73 Personal history of transient ischemic attack (TIA), and cerebral infarction without residual deficits; G43.909 Migraine, unspecified, not intractable, without status migrainosus; K58.9 Irritable bowel syndrome, unspecified; K52.9 Noninfective gastroenteritis and colitis, unspecified; N73.9 Female pelvic inflammatory disease, unspecified; F41.9 Anxiety disorder, unspecified; F32.9 Major depressive disorder, single episode, unspecified; Z98.84 Bariatric surgery status; Z79.899 Other long term (current) drug therapy; Z88.8 Allergy status to other drugs, medicaments and biological substances
CPT/HCPCS: J1200

== ENCOUNTER 2018-07-15 20:30 | Emergency (ER) | payer OTHER ==
[2018-07-15] MEDS: AMOXICILLIN 500 MG CAP PO (21:42)
[2018-07-15] MEDS: LIDOCAINE VISCOUS 2% SOLN 15ML UDC MT (21:42)
[2018-07-15] MEDS: ACETAMINOPHEN 325 MG TAB PO (21:42)
== END 2018-07-15 21:55 | disposition home or self-care (01) ==
LOC: M ED 20:30
DX: K08.89 Other specified disorders of teeth and supporting structures (principal); R22.0 Localized swelling, mass and lump, head; F41.9 Anxiety disorder, unspecified; F32.9 Major depressive disorder, single episode, unspecified; N73.9 Female pelvic inflammatory disease, unspecified; Z86.73 Personal history of transient ischemic attack (TIA), and cerebral infarction without residual deficits; Z88.8 Allergy status to other drugs, medicaments and biological substances; Z79.899 Other long term (current) drug therapy; Z79.01 Long term (current) use of anticoagulants
CPT/HCPCS: 99282

== ENCOUNTER 2018-07-24 22:01 | Emergency (ER) | payer OTHER ==
[2018-07-25 00:26] LABS: KETONE, URINE AUTO RFX NEGATIVE (NEGATIVE); NITRITE, URINE AUTO RFX NEGATIVE (NEGATIVE); RBC, URINE AUTO RFX 34 /HPF (0-3); SQUAM EPITHELIAL CELL UR AURFX 4 /HPF (0-6); WBC, URINE AUTO RFX 2 /HPF (0-3)
[2018-07-25 00:44] LABS: LEUKOCYTE ESTERASE UR AUTO RFX 1+ (NEGATIVE)
== END 2018-07-25 00:48 | disposition left against medical advice (07) ==
LOC: M ED 22:01
DX: R10.9 Unspecified abdominal pain (principal); G43.909 Migraine, unspecified, not intractable, without status migrainosus; Z86.73 Personal history of transient ischemic attack (TIA), and cerebral infarction without residual deficits; Z86.711 Personal history of pulmonary embolism; K58.9 Irritable bowel syndrome, unspecified; K52.9 Noninfective gastroenteritis and colitis, unspecified; F41.9 Anxiety disorder, unspecified; F32.9 Major depressive disorder, single episode, unspecified; D64.9 Anemia, unspecified; Z98.84 Bariatric surgery status; N73.9 Female pelvic inflammatory disease, unspecified; Z79.899 Other long term (current) drug therapy; Z88.8 Allergy status to other drugs, medicaments and biological substances; Z53.21 Procedure and treatment not carried out due to patient leaving prior to being seen by health care provider
CPT/HCPCS: 81001

== ENCOUNTER 2018-08-16 23:19 | Emergency (ER) | payer OTHER ==
[2018-08-17 00:01] LABS: BASO % 0.3 % (0.0-1.0); EOS % 0.6 % (0.0-3.0); HEMOGLOBIN 9.3 g/dl (12.0-15.5); IMMATURE GRANULOCYTE % 0.2 % (0-3.0); LYMPH # 2.1 10^3/uL (1.5-6.5); LYMPH % 32.8 % (24.0-44.0); MEAN CORPUSCULAR HEMOGLOBIN 20.4 pg (27.0-33.0); MEAN CORPUSCULAR HGB CONC 29.1 g/dl (32.0-36.5); MEAN CORPUSCULAR VOLUME 70.2 fl (80.0-96.0); MONO # 0.4 10^3/uL (0.0-0.8); MONO % 6.3 % (0.0-5.0); NEUTROPHILS # 3.8 10^3/uL (1.8-7.7); NEUTROPHILS % 59.8 % (36.0-66.0); PLATELET COUNT, AUTOMATED 197 10^3/uL (150-450); RED BLOOD COUNT 4.56 10^6/uL (4.00-5.40); RED CELL DISTRIBUTION WIDTH 17.9 % (11.5-14.5); WHITE BLOOD COUNT 6.4 10^3/uL (4.0-10.0)
[2018-08-17 00:26] LABS: ALBUMIN 3.5 GM/DL (3.2-5.2); ALBUMIN/GLOBULIN RATIO 1.03 (1.00-1.93); ALKALINE PHOSPHATASE 73 U/L (45-117); ALT/SGPT 14 U/L (12-78); ANION GAP 11 MEQ/L (8-16); AST/SGOT 20 U/L (7-37); BILIRUBIN,DIRECT < 0.1 MG/DL (0.0-0.2); BILIRUBIN,TOTAL 0.2 MG/DL (0.2-1.0); BLOOD UREA NITROGEN 12 MG/DL (7-18); CALCIUM LEVEL 8.6 MG/DL (8.5-10.1); CARBON DIOXIDE LEVEL 25 MEQ/L (21-32); CHLORIDE LEVEL 106 MEQ/L (98-107); GLOMERULAR FILTRATION RATE > 60.0 (>60); GLUCOSE, FASTING 86 MG/DL (70-100); LIPASE 144 U/L (73-393); POTASSIUM SERUM 4.1 MEQ/L (3.5-5.1); SODIUM LEVEL 142 MEQ/L (136-145); TOTAL PROTEIN 6.9 GM/DL (6.4-8.2)
[2018-08-17] MEDS: diphenhydrAMINE INJ 50MG/ML VIAL (J1200) IV (00:30)
[2018-08-17] MEDS: HALOPERIDOL 5 MG/ML VIAL (J1630) IV (00:31)
[2018-08-17] MEDS: NS 1,000 ML IV (00:35)
== END 2018-08-17 01:06 | disposition home or self-care (01) ==
LOC: M ED 08-17 01:06
DX: R11.10 Vomiting, unspecified (principal); D50.9 Iron deficiency anemia, unspecified; D57.3 Sickle-cell trait; K58.9 Irritable bowel syndrome, unspecified; F32.9 Major depressive disorder, single episode, unspecified; G89.29 Other chronic pain; Z98.84 Bariatric surgery status; Z86.711 Personal history of pulmonary embolism; F11.10 Opioid abuse, uncomplicated; Z79.02 Long term (current) use of antithrombotics/antiplatelets; Z79.899 Other long term (current) drug therapy; Z88.8 Allergy status to other drugs, medicaments and biological substances
CPT/HCPCS: J1200

== ENCOUNTER 2018-09-04 15:54 | Emergency (ER) | payer OTHER ==
[~2018-09-04] VITALS: Ht 172.7 cm; Wt 100.0 kg
[~2018-09-04 15:54] MED LIST changes: +ACET30TAB PO; +AMOX500C PO; +AMOX875T PO; +APPL188C PO; +ASPI1TAB PO; +BACT800T5 PO; +CIPR-249 PO; +CLEO300C2 PO; +CRAN125T PO; +D3400CAP PO; +DOXY100C37 PO; +ELIQ5TAB PO; +ESCI20TA; +FISH1000 PO; +FLEEENE4 PR; +IBUP-1022 PO; +IBUP1TAB7 PO; +IRON27TA2 PO; -ISOVUE-370 76% 100ML VIAL (Q9967) As Ordered; +LEXA1TAB2 PO; +LIDO2SO SSP; +LOVE1INJ SC; +MACR100C43 PO; +MAPA500T2 PO; +MEDR4PAK PO; +MOTR200T44 PO; +MULTCAP PO; +NEUR300C PO; +NORC1TAB4 PO; +NORCOTAB PO; +ONDA8TAB8 PO; +OXYC10TA3 PO; +OXYC1TAB23 PO; +PENI500T PO; +PERC5TAB12 PO; +PERCOCET PO; +PNV1TAB6 PO; +PREV15CA PO; +PROM25TA12 PO; +PROT1TAB2 PO; +PYRI1TAB5 PO; +RANI15TA PO; +TIGA300C2 PO; +TOPA50TA8 PO; +TUSS1SUS2 PO; +XARE15TA; +XARE15TA PO; +XARE20TA PO; +ZOFR4TAB14 PO; +[UNRECOGNIZED DRUG - CODE] PO
[2018-09-04 17:18] LABS: BASO % 0.2 % (0.0-1.0); EOS % 0.6 % (0.0-3.0); HEMATOCRIT 31.4 % (36.0-47.0); HEMOGLOBIN 9.2 g/dl (12.0-15.5); LYMPH # 1.7 10^3/uL (1.5-6.5); LYMPH % 26.4 % (24.0-44.0); MEAN CORPUSCULAR HEMOGLOBIN 20.2 pg (27.0-33.0); MEAN CORPUSCULAR HGB CONC 29.3 g/dl (32.0-36.5); MEAN CORPUSCULAR VOLUME 68.9 fl (80.0-96.0); MONO # 0.6 10^3/uL (0.0-0.8); MONO % 8.7 % (0.0-5.0); NEUTROPHILS # 4.1 10^3/uL (1.8-7.7); NEUTROPHILS % 63.9 % (36.0-66.0); PLATELET COUNT, AUTOMATED 147 10^3/uL (150-450); RED BLOOD COUNT 4.56 10^6/uL (4.00-5.40); WHITE BLOOD COUNT 6.3 10^3/uL (4.0-10.0)
[2018-09-04 17:36] LABS: HCG, SERUM QUALITATIVE NEGATIVE (NEGATIVE)
[2018-09-04 17:40] LABS: ALBUMIN 3.7 GM/DL (3.2-5.2); ALT/SGPT 13 U/L (12-78); BILIRUBIN,DIRECT < 0.1 MG/DL (0.0-0.2); BILIRUBIN,TOTAL 0.4 MG/DL (0.2-1.0); BLOOD UREA NITROGEN 11 MG/DL (7-18); CALCIUM LEVEL 8.4 MG/DL (8.5-10.1); CARBON DIOXIDE LEVEL 26 MEQ/L (21-32); CHLORIDE LEVEL 107 MEQ/L (98-107); CK-MB VALUE MASS < 1.0 NG/ML (<3.6); CPK CREATINE PHOSPHOKINASE 88 U/L (26-192); FREE T4 0.91 NG/DL (0.76-1.46); GLOMERULAR FILTRATION RATE > 60.0 (>60); GLUCOSE, FASTING 87 MG/DL (70-100); LIPASE 120 U/L (73-393); MB/CK RELATIVE INDEX 1.14 (< OR =4); NT-PRO BNP 39 PG/ML (<125); POTASSIUM SERUM 3.8 MEQ/L (3.5-5.1); SODIUM LEVEL 141 MEQ/L (136-145); TOTAL PROTEIN 6.9 GM/DL (6.4-8.2); TROPONIN I < 0.02 NG/ML (< 0.10)
[2018-09-04 17:43] LABS: INR 1.08; PROTHROMBIN TIME 14.1 SECONDS (12.1-14.4)
[2018-09-04 17:44] LABS: PARTIAL THROMBOPLASTIN TIME 29.1 SECONDS (25.4-37.6)
[2018-09-04] MEDS ORDERED: PERCOCET 5MG/325MG TAB PO ONE (17:45)
[2018-09-04 17:46] LABS: D-DIMER QUANT 371.87 ng/ml (<500)
[2018-09-04] MEDS ORDERED: ISOVUE-370 76% 100ML VIAL (Q9967) As Ordered ONE (17:46)
--- NOTE | 2018-09-04 18:23 | REP ---
CT pulmonary angiogram: With IV contrast. History: Chest pain. Comparison studies: Comparison CT pulmonary angiogram May 25, 2018. Contrast dose: 75 mL of Isovue [address] technique: Helical scanning is acquired and overlapping 1.5 mm and contiguous 3 mm axial images are reformatted. In addition, maximum intensity projection and multiplanar re-formation images are generated in sagittal and coronal imaging projections. CT pulmonary angiographic findings: There is good opacification of the pulmonary arterial tree and there is no CT evidence of pulmonary embolus. Thoracic aorta enhances homogeneously. No evidence of aneurysm or dissection. No hilar or mediastinal mass or adenopathy is observed. The patient is status post gastric sleeve gastric resection. There is a hypervascular lesion in the right lobe of the liver 1.8 cm in diameter partially seen at the bottom of the imaging field of view. This is faintly visible in retrospect on prior studies and is most compatible with a small hemangioma of the liver. No adrenal lesion is observed. No pleural or pericardial effusion is seen. There is mild linear fibrosis in the lower lobes of the lungs bilaterally unchanged. Lung szymanski are otherwise clear. Impression: There is no CT evidence of pulmonary embolus. Bilateral lower lobe linear fibrosis unchanged. 1.8 cm hypervascular right lobe liver lesion most compatible with benign hemangioma. Status post gastric sleeve procedure. Electronically Signed by Brady Fonseca MD 09/04/2018 06:28 P
[2018-09-04] MEDS ORDERED: MORPHINE 2 MG/ML 1ML SYRINGE (J2270) IV ONE (19:15)
[2018-09-04 19:45] LABS: C REACTIVE PROTEIN QUANTITATIV < 0.30 MG/DL (0.00-0.30)
[2018-09-04 19:58] VITALS: BP 129/89
[2018-09-04 20:35] LABS: ERYTHROCYTE SEDIMENTATION RATE 14 mm/hr (0-20)
--- NOTE | 2018-09-05 11:12 | ECGEPIP ---
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
[2018-09-07 08:51] LABS: DRVV SCREEN 36.9 SEC
[2018-09-07 09:01] LABS: PTT LUPUS TYPE ANTICOAG SCREEN 0.9 (0-1.2)
[2018-09-12 00:35] LABS: ANCA-ATYPICAL <1:20 titer (Neg:<1:20); ANTI DOUBLE STRAND-DNA AB 1 IU/mL (0-9); ANTI THROMBIN 3 ANTIGEN IMMUNO 119 % (72-124); ANTI THROMBIN 3 FUNCT ACTIVITY 123 % (75-135); ANTINUCLEAR ANTIBODIES DIRECT Positive (Negative); CARDIOLIPIN IGA ANTIBODY <9 APL U/mL (0-11); CARDIOLIPIN IGG ANTIBODY <9 GPL U/mL (0-14); CARDIOLIPIN IGM ANTIBODY 11 MPL U/mL (0-12); CYTOPLASMIC NEUTROP AB ANCA-C <1:20 titer (Neg:<1:20); HOMOCYST(E)INE SERUM 8.8 umol/L (0.0-15.0); PERINUCLEAR AB ANCA-P <1:20 titer (Neg:<1:20); PROTEIN C ANTIGEN 107 % (60-150); PROTEIN S ANTIGEN FREE 71 % (57-157); PROTEIN S ANTIGEN TOTAL 72 % (60-150); RNP ANTIBODIES <0.2 AI (0.0-0.9); SJOGREN'S ANTI SS-A 0.2 AI (0.0-0.9); SJOGREN'S ANTI SS-B <0.2 AI (0.0-0.9); SMITH ANTIBODIES <0.2 AI (0.0-0.9)
== END 2018-09-04 20:07 | disposition home or self-care (01) ==
LOC: EDBD 15:54 → M ED 15:54
DX: R07.89 Other chest pain (principal); D57.3 Sickle-cell trait; F32.9 Major depressive disorder, single episode, unspecified; Z98.84 Bariatric surgery status; F11.10 Opioid abuse, uncomplicated; Z86.73 Personal history of transient ischemic attack (TIA), and cerebral infarction without residual deficits; Z86.711 Personal history of pulmonary embolism; Z88.8 Allergy status to other drugs, medicaments and biological substances; Z79.899 Other long term (current) drug therapy
CPT/HCPCS: 36415; 71275; 80048; 80076; 81240; 81241; 82550; 82553; 83090; 83690; 83880; 84439; 84443; 84484; 84703; 85025; 85300; 85301; 85302; 85305; 85306; 85379; 85610; 85652; 85730; 86038; 86140; 86147; 86235; 86256; 93005; 93041; 94760; 96374; 99285; J2270; Q9967

== ENCOUNTER 2018-11-07 12:15 | Emergency (ER) | payer OTHER ==
[~2018-11-07] VITALS: Ht 172.7 cm; Wt 86.4 kg
[~2018-11-07 12:15] MED LIST changes: +ADDE10TA PO; +ADDE30CA3 PO; +ESCI20TA PO
[2018-11-07] MEDS ORDERED: DEXTROAMP (12:24)
[2018-11-07] MEDS ORDERED: ESCI10TA2 (12:24)
[2018-11-07 13:09] LABS: INR 1.01; PROTHROMBIN TIME 13.4 SECONDS (12.1-14.4)
[2018-11-07 13:13] LABS: BASO % 0.2 % (0.0-1.0); EOS % 0.6 % (0.0-3.0); HEMATOCRIT 36.4 % (36.0-47.0); HEMOGLOBIN 11.6 g/dl (12.0-15.5); LYMPH # 1.4 10^3/uL (1.5-6.5); LYMPH % 29.9 % (24.0-44.0); MEAN CORPUSCULAR HEMOGLOBIN 23.6 pg (27.0-33.0); MEAN CORPUSCULAR HGB CONC 31.9 g/dl (32.0-36.5); MEAN CORPUSCULAR VOLUME 74.1 fl (80.0-96.0); MONO # 0.3 10^3/uL (0.0-0.8); MONO % 6.9 % (0.0-5.0); NEUTROPHILS # 2.9 10^3/uL (1.8-7.7); NEUTROPHILS % 61.8 % (36.0-66.0); PLATELET COUNT, AUTOMATED 218 10^3/uL (150-450); RED BLOOD COUNT 4.91 10^6/uL (4.00-5.40); WHITE BLOOD COUNT 4.7 10^3/uL (4.0-10.0)
[2018-11-07] MEDS ORDERED: NS 1,000 ML IV ONE (13:15)
[2018-11-07 13:16] LABS: PARTIAL THROMBOPLASTIN TIME 28.8 SECONDS (25.4-37.6)
[2018-11-07 13:31] LABS: HCG, SERUM QUALITATIVE NEGATIVE (NEGATIVE)
[2018-11-07 13:38] LABS: BLOOD UREA NITROGEN 21 MG/DL (7-18); CALCIUM LEVEL 8.9 MG/DL (8.5-10.1); CARBON DIOXIDE LEVEL 26 MEQ/L (21-32); CHLORIDE LEVEL 107 MEQ/L (98-107); CREATININE FOR GFR 0.53 MG/DL (0.55-1.30); GLOMERULAR FILTRATION RATE > 60.0 (>60); GLUCOSE, FASTING 95 MG/DL (70-100); POTASSIUM SERUM 3.5 MEQ/L (3.5-5.1); SODIUM LEVEL 141 MEQ/L (136-145)
[2018-11-07] MEDS ORDERED: ISOVUE-370 76% 100ML VIAL (Q9967) As Ordered ONE (13:51)
--- NOTE | 2018-11-07 13:55 | REP ---
Clinical: Acute chest pain . Comparison: 12/25/2017 . Findings: The mediastinum and cardiac silhouette are stable and within normal limits for portable technique. The lung szymanski are clear without acute consolidation, effusion, or pneumothorax. Skeletal structures are intact. Impression: No acute cardiopulmonary process appreciated. Electronically Signed by Shakir Zarco MD 11/07/2018 01:47 P
[2018-11-07 14:09] LABS: ANISOCYTOSIS 2+; HYPOCHROMASIA 2+
[2018-11-07 14:11] LABS: OVALOCYTES 1+
[2018-11-07 14:15] LABS: PLATELET ESTIMATE NORMAL (NORMAL); POIKILOCYTOSIS 1+
[2018-11-07 14:21] LABS: AMPHETAMINES LEVEL URINE POSITIVE (NEGATIVE); BARBITURATES URINE NEGATIVE (NEGATIVE); BENZODIAZEPINES URINE NEGATIVE (NEGATIVE); CANNABINOIDS URINE NEGATIVE (NEGATIVE); COCAINE METABOLITE URINE NEGATIVE (NEGATIVE); METHADONE URINE NEGATIVE (NEGATIVE); OPIATES URINE NEGATIVE (NEGATIVE); PHENCYCLIDINE URINE NEGATIVE (NEGATIVE)
--- NOTE | 2018-11-07 14:21 | REP ---
Clinical: Acute chest pain. Technique: Axial contrast enhanced images from the thoracic inlet to the upper abdomen using 100 ml Isovue 370 intravenous contrast material with coronal and sagittal re-formations. Comparison: 09/04/2018. Findings: Satisfactory enhancement of the pulmonary vasculature is achieved and no filling defects are identified to suggest pulmonary embolus. Thoracic aorta is normal caliber without aneurysm or dissection. Heart and pericardium are normal. Lung szymanski demonstrate trace chronic linear fibroatelectatic changes to the bilateral apical lower lobes. No consolidation, effusion, or pneumothorax. Impression: No evidence for pulmonary embolus. Minimal stable chronic lower lobe changes. No acute mediastinal or pleuroparenchymal process. Electronically Signed by Shakir Zarco MD 11/07/2018 02:12 P
[2018-11-07 14:22] LABS: KETONE, URINE MANUAL 3+ mg/dL (NEGATIVE)
[2018-11-07 14:23] LABS: GLUCOSE, URINE (UA) MANUAL NEGATIVE (NEGATIVE)
--- NOTE | 2018-11-07 14:23 | REP ---
Clinical: Generalized abdominal pain. Technique: Axial contrast enhanced images from the lung bases to the pubic symphysis using 100 ml Isovue 370 intravenous contrast material with coronal and sagittal re-formations. Comparison: 07/11/2018. Findings: Stable 1.7 cm hemangioma in the right lobe of the liver. Spleen, pancreas, bilateral adrenal glands and kidneys are normal. The patient appears to be status post gastric bypass surgery and cholecystectomy. No bowel obstruction or acute inflammatory process. Pelvis demonstrates normal bladder and age-appropriate uterus/adnexa. No ascites. No free air. No adenopathy. Abdominal aorta without aneurysm. Musculoskeletal structures are intact. Impression: 1. Stable hepatic hemangioma. 2. No acute abdominopelvic pathology appreciated. 3. Evidence of prior gastric bypass surgery and cholecystectomy. Electronically Signed by Shakir Zarco MD 11/07/2018 02:14 P
[2018-11-07 14:24] LABS: BILIRUBIN, URINE MANUAL NEGATIVE (NEGATIVE); UROBILINOGEN, URINE MANUAL 1 MG mg/dl (NORMAL)
[2018-11-07 14:25] LABS: RBC, URINE TNTC /hpf (0-3)
[2018-11-07 14:28] LABS: BACTERIA, URINE NONE SEEN; HYALINE CAST, URINE NONE SEEN /lpf (0-1); SQUAMOUS EPITHELIAL CELL URINE NONE SEEN /hpf (SMALL AMT)
[2018-11-07 16:30] VITALS: BP 119/56
--- NOTE | 2018-11-08 17:34 | ECGEPIP ---
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
== END 2018-11-07 16:35 | disposition home or self-care (01) ==
LOC: M ED 12:15
DX: R07.89 Other chest pain (principal); Z86.711 Personal history of pulmonary embolism; Z86.73 Personal history of transient ischemic attack (TIA), and cerebral infarction without residual deficits; Z79.899 Other long term (current) drug therapy; Z79.01 Long term (current) use of anticoagulants; Z88.8 Allergy status to other drugs, medicaments and biological substances
CPT/HCPCS: 71045; 71275; 74177; 80048; 80307; 81000; 84703; 85025; 85610; 85730; 87086; 93005; 93041; 94760; 96360; 96361; 99285; Q9967

== ENCOUNTER 2018-11-28 00:10 | Emergency (ER) | payer OTHER ==
[~2018-11-28] VITALS: Ht 172.7 cm; Wt 86.4 kg
[~2018-11-28 00:10] MED LIST changes: +DEXTROAMP; +ESCI10TA2
[2018-11-28 02:54] VITALS: BP 130/71
[2018-11-28] MEDS ORDERED: AMOX875T PO (03:43)
[2018-11-28] MEDS ORDERED: XARE20TA PO (03:43)
[2018-11-28] MEDS ORDERED: BUPIVACAINE LIPOSOME/PF 1.3% 20ML VIAL (13.3MG/ML)(EXPAREL)(C9290 PER1MG) INFIL ONE (05:15)
[2018-11-28] MEDS ORDERED: CETACAINE SPRAY 5GM TOP ONE (05:45)
[2018-11-28] MEDS ORDERED: AUGM500T34 PO (05:46)
== END 2018-11-28 06:17 | disposition home or self-care (01) ==
LOC: M ED 00:10
DX: K08.89 Other specified disorders of teeth and supporting structures (principal); D50.9 Iron deficiency anemia, unspecified; Z86.711 Personal history of pulmonary embolism; Z87.891 Personal history of nicotine dependence; Z79.01 Long term (current) use of anticoagulants; Z79.899 Other long term (current) drug therapy; Z88.8 Allergy status to other drugs, medicaments and biological substances
CPT/HCPCS: 64400; 99283; C9290

== ENCOUNTER 2019-01-08 15:15 | Emergency (ER) | payer OTHER ==
[~2019-01-08] VITALS: Ht 172.7 cm; Wt 86.4 kg
[2019-01-08 15:15] VITALS: BP 129/60
[~2019-01-08 15:15] MED LIST changes: +ACET-716 PO; -ACET30TAB PO; -ASPI1TAB PO; +ASPI81CH33 PO; +ASPI81TA26 PO; +AUGM500T34 PO; +HYDR-3715 PO; -NORC1TAB4 PO; +NORC1TAB7 PO; -NORCOTAB PO
[2019-01-08] MEDS ORDERED: ADDE30TA (15:22)
[2019-01-08] MEDS ORDERED: XARE10TA PO ×2 (15:22→15:35)
[2019-01-08] MEDS ORDERED: XARE20TA PO (15:35)
[2019-01-08] MEDS ORDERED: LEXA1TAB PO (15:38)
[2019-01-08] MEDS ORDERED: ADDE30CA3 PO (15:40)
== END 2019-01-08 15:56 | disposition home or self-care (01) ==
LOC: M ED 15:15
DX: Z76.0 Encounter for issue of repeat prescription (principal); D64.9 Anemia, unspecified; F33.9 Major depressive disorder, recurrent, unspecified; F41.9 Anxiety disorder, unspecified; K21.9 Gastro-esophageal reflux disease without esophagitis; G43.909 Migraine, unspecified, not intractable, without status migrainosus; K58.9 Irritable bowel syndrome, unspecified; N73.9 Female pelvic inflammatory disease, unspecified; Z86.711 Personal history of pulmonary embolism; Z79.899 Other long term (current) drug therapy; Z79.01 Long term (current) use of anticoagulants; Z88.8 Allergy status to other drugs, medicaments and biological substances

== ENCOUNTER 2019-01-10 15:12 | Emergency (ER) | payer OTHER ==
[~2019-01-10] VITALS: Ht 172.7 cm; Wt 90.7 kg
[2019-01-10 15:12] VITALS: BP 129/70
[~2019-01-10 15:12] MED LIST changes: +ADDE30TA; +LEXA1TAB PO; +XARE10TA PO
[2019-01-10] MEDS ORDERED: ADDE1TAB20 PO (16:58)
[2019-01-10] MEDS ORDERED: XARE10TA PO (16:58)
[2019-01-10] MEDS ORDERED: LEXA1TAB PO (16:58)
[2019-01-10] MEDS ORDERED: AMPH1TAB2 PO (19:15)
== END 2019-01-10 17:07 | disposition home or self-care (01) ==
LOC: M ED 15:12
DX: Z76.0 Encounter for issue of repeat prescription (principal); G43.909 Migraine, unspecified, not intractable, without status migrainosus; F41.9 Anxiety disorder, unspecified; F32.9 Major depressive disorder, single episode, unspecified; Z86.73 Personal history of transient ischemic attack (TIA), and cerebral infarction without residual deficits; Z79.899 Other long term (current) drug therapy; Z88.8 Allergy status to other drugs, medicaments and biological substances

== ENCOUNTER 2019-01-16 14:32 | Emergency (ER) | payer OTHER ==
[~2019-01-16] VITALS: Ht 172.7 cm; Wt 93.8 kg
[~2019-01-16 14:32] MED LIST changes: +ADDE1TAB20 PO; +AMPH1TAB2 PO
[2019-01-16] MEDS ORDERED: B-12100011 SL (15:22)
[2019-01-16] MEDS ORDERED: HYDR-3363 PO (16:16)
[2019-01-16 17:18] VITALS: BP 115/60
--- NOTE | 2019-01-16 19:26 | ECGEPIP ---
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
== END 2019-01-16 17:19 | disposition home or self-care (01) ==
LOC: M ED 14:32
DX: F41.9 Anxiety disorder, unspecified (principal); F90.9 Attention-deficit hyperactivity disorder, unspecified type; Z79.01 Long term (current) use of anticoagulants; Z79.52 Long term (current) use of systemic steroids; Z79.899 Other long term (current) drug therapy; Z88.8 Allergy status to other drugs, medicaments and biological substances; Z90.49 Acquired absence of other specified parts of digestive tract; Z90.89 Acquired absence of other organs; Z98.84 Bariatric surgery status

== ENCOUNTER 2019-02-20 18:06 | Emergency (ER) | payer OTHER ==
[~2019-02-20] VITALS: Ht 172.7 cm; Wt 86.4 kg
[~2019-02-20 18:06] MED LIST changes: +B-12100011 SL; +HYDR-3363 PO
[2019-02-20] MEDS ORDERED: OXYC10TA12 PO (18:27)
[2019-02-20] MEDS ORDERED: ESCI20TA PO (18:56)
[2019-02-20] MEDS ORDERED: XARE20TA PO ×2 (18:56→20:03)
[2019-02-20] MEDS ORDERED: Adderall PO (18:56)
[2019-02-20] MEDS ORDERED: LEXA1TAB PO (20:03)
[2019-02-20] MEDS ORDERED: OXYC-517 PO (20:03)
[2019-02-20 20:11] VITALS: BP 140/70
== END 2019-02-20 20:17 | disposition home or self-care (01) ==
LOC: M ED 18:54
DX: K08.89 Other specified disorders of teeth and supporting structures (principal); Z76.0 Encounter for issue of repeat prescription; G43.909 Migraine, unspecified, not intractable, without status migrainosus; K58.9 Irritable bowel syndrome, unspecified; D50.9 Iron deficiency anemia, unspecified; N73.9 Female pelvic inflammatory disease, unspecified; Z86.73 Personal history of transient ischemic attack (TIA), and cerebral infarction without residual deficits; Z86.711 Personal history of pulmonary embolism; Z79.899 Other long term (current) drug therapy; Z79.01 Long term (current) use of anticoagulants; Z88.8 Allergy status to other drugs, medicaments and biological substances; Z98.84 Bariatric surgery status

== ENCOUNTER 2019-03-10 12:49 | Emergency (ER) | payer OTHER ==
[~2019-03-10] VITALS: Ht 172.7 cm; Wt 86.4 kg
[~2019-03-10 12:49] MED LIST changes: +Adderall PO; +OXYC-517 PO; +OXYC10TA12 PO
[2019-03-10] MEDS ORDERED: HYDR-3363 PO (12:58)
--- NOTE | 2019-03-10 13:46 | REP ---
REASON: Chest pain. COMPARISON: 11/07/2018. FINDINGS: The superior mediastinal structures are midline. The cardiac silhouette is unremarkable in size, shape, and position. The diaphragmatic surfaces of the lungs are regular, and the costophrenic angles are clear. The pulmonary szymanski are clear. The imaged osseous structures are intact. IMPRESSION: There is no acute cardiopulmonary disease. Electronically Signed by Jose Bowen DO 03/10/2019 04:20 P
[2019-03-10 13:47] LABS: BASO % 0.2 % (0.0-1.0); EOS # 0.1 10^3/uL (0.0-0.50); HEMATOCRIT 40.2 % (36.0-47.0); HEMOGLOBIN 13.3 g/dl (12.0-15.5); LYMPH # 1.2 10^3/uL (1.5-6.5); LYMPH % 24.7 % (24.0-44.0); MEAN CORPUSCULAR HEMOGLOBIN 28.6 pg (27.0-33.0); MEAN CORPUSCULAR HGB CONC 33.1 g/dl (32.0-36.5); MEAN CORPUSCULAR VOLUME 86.5 fl (80.0-96.0); MONO # 0.3 10^3/uL (0.0-0.8); MONO % 6.6 % (0.0-5.0); NEUTROPHILS # 3.4 10^3/uL (1.8-7.7); NEUTROPHILS % 67.3 % (36.0-66.0); PLATELET COUNT, AUTOMATED 202 10^3/uL (150-450); RED BLOOD COUNT 4.65 10^6/uL (4.00-5.40)
--- NOTE | 2019-03-10 14:06 | ECGEPIP ---
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
[2019-03-10 14:15] LABS: ALT/SGPT 20 U/L (12-78); BILIRUBIN,TOTAL 0.4 MG/DL (0.2-1.0); BLOOD UREA NITROGEN 20 MG/DL (7-18); CARBON DIOXIDE LEVEL 27 MEQ/L (21-32); CHLORIDE LEVEL 108 MEQ/L (98-107); CK-MB VALUE MASS < 1.0 NG/ML (<3.6); CPK CREATINE PHOSPHOKINASE 81 U/L (26-192); CREATININE FOR GFR 0.69 MG/DL (0.55-1.30); GLOMERULAR FILTRATION RATE > 60.0 (>60); GLUCOSE, FASTING 84 MG/DL (70-100); MB/CK RELATIVE INDEX 1.23 (< OR =4); POTASSIUM SERUM 3.8 MEQ/L (3.5-5.1); SODIUM LEVEL 142 MEQ/L (136-145)
[2019-03-10 14:16] LABS: ALBUMIN 3.7 GM/DL (3.2-5.2); TROPONIN I < 0.02 NG/ML (< 0.10)
[2019-03-10] MEDS ORDERED: ACETAMINOPHEN 325 MG TAB PO ONE (15:00)
--- NOTE | 2019-03-10 15:17 | REP ---
REASON: Head pain. COMPARISON: 06/11/2018 TECHNIQUE: 4.5 mm contiguous transaxial sections were obtained from the skull base to the cerebral convexities with thin cuts through the posterior fossa without the administration of intravenous contrast. FINDINGS: The ventricles and sulci are consistent with the patient's age. There are no extra-axial fluid collections. There is no mass effect. The deep cerebral white matter is consistent with the patient's age. The orbital and petrous structures , cerebellopontine angles, and posterior fossa are unremarkable. The sella turcica, cavernous, and paracavernous structures are essentially unremarkable. The visualized portions of the paranasal sinuses and mastoid air cells are clear. Images of the skull base show no gross abnormality. IMPRESSION: Essentially unremarkable CT examination of the brain. No change from the prior exam. Electronically Signed by Jose Bowen DO 03/10/2019 04:21 P
[2019-03-10] MEDS ORDERED: PROMETHAZINE INJ 25 MG/ML VIAL (J2550) IV ONE (16:30)
[2019-03-10] MEDS ORDERED: KETOROLAC 30 MG/ML VIAL (J1885) IV ONE (20:30)
--- NOTE | 2019-03-10 20:51 | REPVR ---
EXAM: MR Angiogram Head Without Contrast, Arteries EXAM DATE/TIME: 03/10/2019 7:59 PM CLINICAL HISTORY: 28 years old, female; Headache and other: HX stroke 2015; Additional info: Neck pain/headache/neuro symptoms TECHNIQUE: Imaging protocol: MR angiogram head without contrast. Exam focused on the arteries. COMPARISON: MRA BRAIN W/O CONTRAST 10/12/2017 2:00 PM FINDINGS: Right internal carotid artery: Unremarkable. Intracranial segment is patent with no significant stenosis. No aneurysm. Right anterior cerebral artery: Unremarkable. No occlusion or significant stenosis. No aneurysm. Right middle cerebral artery: Unremarkable. No occlusion or significant stenosis. No aneurysm. Right posterior cerebral artery: origin of the right posterior cerebral artery. Patent. Right vertebral artery: Unremarkable. No occlusion or significant stenosis. No aneurysm. Left internal carotid artery: Unremarkable. Intracranial segment is patent with no significant stenosis. No aneurysm. Left anterior cerebral artery: Unremarkable. No occlusion or significant stenosis. No aneurysm. Left middle cerebral artery: Unremarkable. No occlusion or significant stenosis. No aneurysm. Left posterior cerebral artery: Unremarkable. No occlusion or significant stenosis. No aneurysm. Left vertebral artery: Unremarkable. No occlusion or significant stenosis. No aneurysm. Basilar artery: Unremarkable. No occlusion or significant stenosis. No aneurysm. IMPRESSION: No major proximal vessel branch occlusion, aneurysm or arteriovenous malformation seen. Electronically signed by: Zara Her On 03/10/2019 20:50:43 PM
--- NOTE | 2019-03-10 20:53 | REPVR ---
EXAM: MR Angiography Neck Without Contrast EXAM DATE/TIME: 03/10/2019 7:59 PM CLINICAL HISTORY: 28 years old, female; Headache and other: HX stroke 2015; Additional info: Neck pain/headache/neuro symptoms TECHNIQUE: Imaging protocol: Magnetic resonance angiography images of the neck without intravenous contrast. COMPARISON: CR SPINE CERVICAL COMPL 03/31/2018 4:25 PM FINDINGS: Right common carotid artery: Normal. No stenosis. No dissection or occlusion. Right internal carotid artery: Normal. Extracranial segment is patent with no stenosis. No dissection or occlusion. Right external carotid artery: Normal. No stenosis. No dissection or occlusion. Right vertebral artery: Normal. No stenosis. No dissection or occlusion. Left common carotid artery: Normal. No stenosis. No dissection or occlusion. Left internal carotid artery: Normal. Extracranial segment is patent with no stenosis. No dissection or occlusion. Left external carotid artery: Normal. No stenosis. No dissection or occlusion. Left vertebral artery: Normal. No stenosis. No dissection or occlusion. IMPRESSION: No acute vascular findings or stenoses in the neck. COMMENT: Reference per NASCET criteria for degree of stenosis: Mild: less than 50% stenosis. Moderate: 50-69% stenosis. Severe: 70-94% stenosis. Near occlusion: 95-99% stenosis. Electronically signed by: Zara Her On 03/10/2019 20:52:57 PM
--- NOTE | 2019-03-10 21:01 | REPVR ---
EXAM: MR Head Without Contrast EXAM DATE/TIME: 03/10/2019 7:59 PM CLINICAL HISTORY: 28 years old, female; Other: Headache, HX of stroke 2015; Additional info: Neck pain/headache/neuro symptoms TECHNIQUE: Imaging protocol: MR of the head without contrast. COMPARISON: MRI-Brain without Contrast 10/11/2017 9:34 PM FINDINGS: Brain: No acute infarct identified on the diffusion weighted imaging. No parenchymal hemorrhage. No evidence of brain parenchymal edema or intracranial mass effect. There is a small, chronic right parietal infarct, as before. No significant white matter disease for the patient's age. Ventricles: Stable. No ventriculomegaly. Bones/joints: Unremarkable. Soft tissues: Normal. Sinuses: Trace ethmoid sinus mucosal thickening. Mastoid air cells: Normal as visualized. No mastoid effusion. Orbits: Unremarkable. IMPRESSION: No evidence of acute infarct. Electronically signed by: Zara Her On 03/10/2019 21:01:09 PM
[2019-03-10 23:32] VITALS: BP 128/58
== END 2019-03-10 23:35 | disposition home or self-care (01) ==
LOC: M ED 12:49
DX: R51 Headache (principal); R07.9 Chest pain, unspecified; Z86.711 Personal history of pulmonary embolism; Z86.73 Personal history of transient ischemic attack (TIA), and cerebral infarction without residual deficits; Z98.84 Bariatric surgery status; Z79.899 Other long term (current) drug therapy; Z88.8 Allergy status to other drugs, medicaments and biological substances
CPT/HCPCS: 70450; 70544; 70547; 70551; 71046; 80053; 82550; 82553; 84484; 84702; 85025; 85379; 93005; 93041; 96374; 96375; 99285; J1885